=== PATIENT | female | born 2000 | race Caucasian/White ===

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

== ENCOUNTER 2018-01-21 23:45 | Emergency (ER) | payer OTHER ==
[2018-01-22 00:11] VITALS: BP 127/77; PULSE 93; RESP 18; TEMP 98.7
--- NOTE | 2018-01-22 00:30 | ED ---
Lower Extremity Injury HPI - General Chief Complaint: Extremity Injury, Lower Stated Complaint: Work Injury Source: patient Mode of arrival: ambulatory Limitations: no limitations - History of Present Illness Initial Comments: 18-year-old female who denies past medical history presenting today for chief complaint of left ankle pain. 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 Patient denies falling hitting her head or injury to any other extremity. Patient states she difficulty weight-bearing following the incident. Patient states she completed her shift. She was able to ambulate however not applying full pressure on her left ankle. Patient states that she applied ice at that time. Patient states when she went home she ice the ankle and continue to elevate. When pain persisted this evening patient presented for evaluation. Patient denies numbness, loss sensation, coolness or pallor of the extremity. Upon arrival, patient is ambulating, she appears well signs of acute distress. Vital signs within acceptable limits. - Related Data Home Medications Medication Instructions Recorded Confirmed Pnv,Calcium 72/Iron/Folic Acid 1 tab PO DAILY 12/25/17 12/25/17 [ Plus Tablet] Previous Rx's Medication Instructions Recorded Nitrofurantoin Monohyd/M-Cryst 100 mg PO Q12HR #14 cap 12/25/17 [Macrobid] Allergies Allergy/AdvReac Type Severity Reaction Status Date / Time No Known Allergies Allergy Verified 01/22/18 00:11 Review of Systems ROS Statement: Those systems with pertinent positive or pertinent negative responses have been documented in the HPI. ROS Other: All systems not noted in ROS Statement are negative. Constitutional: Denies: fever, chills, night sweats ENT: Denies: ear pain, throat pain Respiratory: Denies: cough, dyspnea, wheezes, hemoptysis Cardiovascular: Denies: chest pain, palpitations Endocrine: Denies: fatigue Gastrointestinal: Denies: abdominal pain, nausea, vomiting, diarrhea, constipation Genitourinary: Denies: urgency, dysuria Musculoskeletal: Reports: joint swelling, arthralgia. Denies: back pain Skin: Denies: rash, lesions Neurological: Denies: headache, weakness, numbness, paresthesias, confusion Past Medical History Past Medical History: GERD/Reflux History of Any Multi-Drug Resistant Organisms: ESBL Date of last positivie culture/infection: 12/25/17 MDRO Source:: URNE ESBL Past Surgical History: No Surgical Hx Reported Past Psychological History: Anxiety, Bipolar, Depression Smoking Status: Light tobacco smoker Past Alcohol Use History: None Reported Past Drug Use History: None Reported General Exam - General Exam Comments Initial Comments: General: The patient is awake and alert, in no distress, and does not appear acutely ill. Eye: +3 pupils are equal, round and reactive to light, extra-ocular movements are intact. No nystagmus. There is normal conjunctiva bilaterally. No signs of icterus. . Cardiovascular: There is a regular rate and rhythm. No murmur, rub or gallop is appreciated. Respiratory: Lungs are clear to auscultation, respirations are non-labored, breath sounds are equal. No wheezes, stridor, rales, or rhonchi. Musculoskeletal: Upon inspection of the ankles, there is mild soft tissue swelling noted along the lateral malleolus of the left ankle. There is no ecchymosis, abrasions or lacerations. Normal inspection of the right ankle. No obvious deformities. Patient is able to fully range at the left ankle however she admits to pain with all motions. Especially with inversion and eversion at the left ankle. No noted laxity of the ankle joint noted. Negative anterior posterior drawer testing. Strength 55 with range of motion of the ankles equally bilaterally. DP pulses +2 equal bilaterally, capillary refill less than 2 seconds. Compartments soft and compressible. There is no pain to compression of the tibia and fibula together. No pain to palpation of the forefoot, no pain or patient at theMTP joints of digits 1 through 3. Neurological: A&O x 3. CN II-XII intact, There are no obvious motor or sensory deficits. Coordination appears grossly intact. Speech is normal. Skin: Skin is warm and dry and no rashes or lesions are noted. Psychiatric: Cooperative, appropriate mood & affect, normal judgment. Limitations: no limitations Course Vital Signs 01/22/18 00:08 Temperature 98.7 F Pulse Rate 93 Respiratory 18 Rate Blood Pressure 127/77 O2 Sat by Pulse 100 Oximetry Medical Decision Making - Medical Decision Making Patient neurovascularly intact. Physical exam as noted above. Imaging obtained , revealing. Patient denied pain management this time. Patient is placed in a posterior mold splint. In addition patient was given crutches for ambulation. Patient is instructed to follow-up with orthopedic surgery if symptoms persist for greater than 1 week. Patient is to follow rice instruction which were discussed at length with patient. Patient verbalized understanding of plan. I recommend follow-up with primary care provider in one to 2 days. At this time I do feel patient is stable for discharge. Patient was giving a work note. Case discussed with Dr. Mccarthy who agreed the impression and plan. Patient agreed with discharge, discharged in stable condition. Return parameters discussed at length prior to patient's discharge Disposition Clinical Impression: Left ankle sprain Disposition: HOME SELF-CARE Condition: Good Instructions: Ankle Sprain (ED) Additional Instructions: Please use medication as discussed. Please follow-up with family doctor in the next 2 days, if symptoms persist for greater than 1 week please follow-up with orthopedic surgery. He sees crutches for ambulation. Please return to emergency room if the symptoms increase or worsen or for any other concerns. Is patient prescribed a controlled substance at d/c from ED?: No Referrals: Lamont Joshi DO [Primary Care Provider] - 1-2 days Cydney Meadows NPC [Nurse Practitioner] - 1-2 days Time of Disposition: 01:16
--- NOTE | 2018-01-22 00:52 | XR ---
EXAMINATION TYPE: XR ankle complete LT DATE OF EXAM: 01/22/2018 COMPARISON: NONE HISTORY: Ankle pain TECHNIQUE: 3 views FINDINGS: There is soft tissue swelling over the lateral malleolus. Ankle mortise is anatomic. I see no fracture. Joint spaces are normal. IMPRESSION: Soft tissue swelling. No fracture seen.
--- NOTE | 2018-01-22 00:53 | XR ---
EXAMINATION TYPE: XR foot complete LT DATE OF EXAM: 01/22/2018 COMPARISON: NONE HISTORY: Foot pain TECHNIQUE: 3 views FINDINGS: I see no fracture nor dislocation. Metatarsals are intact. There are no erosions. Joint spa zara are normal. IMPRESSION: Negative left foot exam.
== END 2018-01-22 01:24 | disposition home or self-care (01) ==
LOC: EC 23:45
DX: S93.402A Sprain of unspecified ligament of left ankle, initial encounter (principal); F17.200 Nicotine dependence, unspecified, uncomplicated; W18.09XA Striking against other object with subsequent fall, initial encounter; Y93.02 Activity, running; Y92.69 Other specified industrial and construction area as the place of occurrence of the external cause; Y99.0 Civilian activity done for income or pay
CPT/HCPCS: 29515; 99283

== ENCOUNTER → 2018-02-09 | Outpatient (CLI) | payer OTHER ==
--- NOTE | 2018-02-09 12:15 | XR ---
EXAMINATION TYPE: XR ankle complete LT DATE OF EXAM: 02/09/2018 COMPARISON: NONE HISTORY: 18-year-old female rolled left ankle 2 weeks ago, pain TECHNIQUE: 3 views FINDINGS: There may be some mild lateral sided soft tissue swelling. Ankle mortise is congruent and talar dome is intact. Preserved distal tibiofibular overlap. No acute fracture, subluxation, or dislocation seen . IMPRESSION: There may be some mild lateral sided soft tissue swelling. No acute osseous abnormality seen.
== END ==
LOC: RADXRMAIN 11:47
PROVIDERS: ATTEND Emergency Medicine
DX: S93.402D Sprain of unspecified ligament of left ankle, subsequent encounter (principal)

== ENCOUNTER 2018-02-23 05:37 | Emergency (ER) | payer OTHER ==
[2018-02-23] MEDS ORDERED: SODIUM CHLORIDE 0.9% 2,000 ML IV STA (07:04)
--- NOTE | 2018-02-23 07:33 | ED ---
Nausea/Vomiting/Diarrhea HPI - General Chief complaint: Nausea/Vomiting/Diarrhea Stated complaint: NVD Time Seen by Provider: 02/23/18 07:03 Source: patient, RN notes reviewed Mode of arrival: ambulatory Limitations: no limitations - History of Present Illness Initial comments: 18-year-old female presents emergency department to complaint of nausea and diarrhea patient states that she's been sick over the last 24 hours. Patient states both of her nieces have similar symptoms. Patient said no vomiting but states that she's had severe diarrhea which is now let up. Patient denies any melena or hematochezia. Patient states she recently found out she is but has no complaints of abdominal pain, vaginal bleeding or vaginal discharge. Patient denies any current dysuria, hematuria. Patient states that she took Zofran at home. Patient denies any fever, chills, flank pain, chest pain or shortness of breath - Related Data Home Medications Medication Instructions Recorded Confirmed Pnv,Calcium 72/Iron/Folic Acid 1 tab PO DAILY 12/25/17 02/23/18 [ Plus Tablet] Previous Rx's Medication Instructions Recorded Nitrofurantoin Monohyd/M-Cryst 100 mg PO Q12HR #14 cap 02/23/18 [Macrobid] Allergies Allergy/AdvReac Type Severity Reaction Status Date / Time No Known Allergies Allergy Verified 02/23/18 07:47 Review of Systems ROS Statement: Those systems with pertinent positive or pertinent negative responses have been documented in the HPI. ROS Other: All systems not noted in ROS Statement are negative. Past Medical History Past Medical History: GERD/Reflux History of Any Multi-Drug Resistant Organisms: ESBL Date of last positivie culture/infection: 12/25/17 MDRO Source:: URNE ESBL Past Surgical History: No Surgical Hx Reported Past Psychological History: Anxiety, Bipolar, Depression Smoking Status: Light tobacco smoker Past Alcohol Use History: None Reported Past Drug Use History: None Reported General Exam Limitations: no limitations General appearance: alert, in no apparent distress Head exam: Present: atraumatic, normocephalic, normal inspection Eye exam: Present: normal appearance, PERRL, EOMI. Absent: scleral icterus, conjunctival injection, periorbital swelling ENT exam: Present: normal oropharynx Neck exam: Present: normal inspection, full ROM. Absent: tenderness, meningismus, lymphadenopathy Respiratory exam: Present: normal lung sounds bilaterally. Absent: respiratory distress, wheezes, rales, rhonchi, stridor Cardiovascular Exam: Present: regular rate, normal rhythm, normal heart sounds. Absent: systolic murmur, diastolic murmur, rubs, gallop, clicks GI/Abdominal exam: Present: soft, normal bowel sounds. Absent: distended, tenderness, guarding, rebound, rigid Back exam: Absent: CVA tenderness (R), CVA tenderness (L) Skin exam: Present: warm, dry, intact, normal color. Absent: rash Course Vital Signs 02/23/18 06:09 Temperature 98.4 F Pulse Rate 62 Respiratory 16 Rate Blood Pressure 97/65 O2 Sat by Pulse 100 Oximetry Medical Decision Making - Medical Decision Making 18-year-old female presented emergency from for nausea diarrhea. Patient was hydrated 2 L of fluids, patient states she does feel better. Patient does have underlying urinary tract infection will be treated for urinary tract infection and . Patient was given 1 g Rocephin emergency department, will be discharged on Macrobid return parameters were discussed. - Lab Data Result diagrams: 02/23/18 07:35 02/23/18 07:35 Lab Results 02/23/18 02/23/18 02/23/18 Range/Units 07:35 07:35 07:35 WBC 11.4 H (4.0-11.0) k/uL RBC 4.76 (3.80-5.40) m/uL Hgb 13.7 (11.4-16.0) gm/dL Hct 41.9 (34.0-46.0) % MCV 88.0 (80.0-100.0) fL MCH 28.7 (25.0-35.0) pg MCHC 32.7 (31.0-37.0) g/dL RDW 12.7 (11.5-15.5) % Plt Count 309 (150-450) k/uL Neutrophils % 84 % Lymphocytes % 10 % Monocytes % 4 % Eosinophils % 1 % Basophils % 0 % Neutrophils # 9.6 H (1.3-7.7) k/uL Lymphocytes # 1.1 (1.0-4.8) k/uL Monocytes # 0.4 (0-1.0) k/uL Eosinophils # 0.1 (0-0.7) k/uL Basophils # 0.0 (0-0.2) k/uL Sodium 142 (137-145) mmol/L Potassium 4.3 (3.5-5.1) mmol/L Chloride 110 H (98-107) mmol/L Carbon Dioxide 23 (22-30) mmol/L Anion Gap 9 mmol/L BUN 8 (7-17) mg/dL Creatinine 0.61 (0.52-1.04) mg/dL Est GFR (CKD-EPI)AfAm >90 (>60 ml/min/1.73 sqM) Est GFR (CKD-EPI)NonAf >90 (>60 ml/min/1.73 sqM) Glucose 96 (74-99) mg/dL Calcium 9.7 (8.4-10.2) mg/dL Total Bilirubin 1.2 (0.2-1.3) mg/dL AST 17 (14-36) U/L ALT 21 (9-52) U/L Alkaline Phosphatase 116 (38-126) U/L Total Protein 7.8 (6.3-8.2) g/dL Albumin 4.2 (3.5-5.0) g/dL Amylase 67 (30-110) U/L Lipase 89 (23-300) U/L HCG, Quant 1304.9 mIU/mL Urine Color Yellow Urine Appearance Cloudy H (Clear) Urine pH 6.0 (5.0-8.0) Ur Specific Stanley 1.032 (1.001-1.035) Urine Protein 1+ H (Negative) Urine Glucose (UA) Negative (Negative) Urine Ketones 1+ H (Negative) Urine Blood Negative (Negative) Urine Nitrite Positive H (Negative) Urine Bilirubin Negative (Negative) Urine Urobilinogen <2.0 (<2.0) mg/dL Ur Leukocyte Esterase Large H (Negative) Urine RBC 4 (0-5) /hpf Urine WBC 8 H (0-5) /hpf Ur Squamous Epith Cells 7 H (0-4) /hpf Urine Bacteria Many H (None) /hpf Urine Mucus Many H (None) /hpf Blood Type Blood Type Recheck 02/23/18 Range/Units 07:39 WBC (4.0-11.0) k/uL RBC (3.80-5.40) m/uL Hgb (11.4-16.0) gm/dL Hct (34.0-46.0) % MCV (80.0-100.0) fL MCH (25.0-35.0) pg MCHC (31.0-37.0) g/dL RDW (11.5-15.5) % Plt Count (150-450) k/uL Neutrophils % % Lymphocytes % % Monocytes % % Eosinophils % % Basophils % % Neutrophils # (1.3-7.7) k/uL Lymphocytes # (1.0-4.8) k/uL Monocytes # (0-1.0) k/uL Eosinophils # (0-0.7) k/uL Basophils # (0-0.2) k/uL Sodium (137-145) mmol/L Potassium (3.5-5.1) mmol/L Chloride (98-107) mmol/L Carbon Dioxide (22-30) mmol/L Anion Gap mmol/L BUN (7-17) mg/dL Creatinine (0.52-1.04) mg/dL Est GFR (CKD-EPI)AfAm (>60 ml/min/1.73 sqM) Est GFR (CKD-EPI)NonAf (>60 ml/min/1.73 sqM) Glucose (74-99) mg/dL Calcium (8.4-10.2) mg/dL Total Bilirubin (0.2-1.3) mg/dL AST (14-36) U/L ALT (9-52) U/L Alkaline Phosphatase (38-126) U/L Total Protein (6.3-8.2) g/dL Albumin (3.5-5.0) g/dL Amylase (30-110) U/L Lipase (23-300) U/L HCG, Quant mIU/mL Urine Color Urine Appearance (Clear) Urine pH (5.0-8.0) Ur Specific Stanley (1.001-1.035) Urine Protein (Negative) Urine Glucose (UA) (Negative) Urine Ketones (Negative) Urine Blood (Negative) Urine Nitrite (Negative) Urine Bilirubin (Negative) Urine Urobilinogen (<2.0) mg/dL Ur Leukocyte Esterase (Negative) Urine RBC (0-5) /hpf Urine WBC (0-5) /hpf Ur Squamous Epith Cells (0-4) /hpf Urine Bacteria (None) /hpf Urine Mucus (None) /hpf Blood Type A Positive Blood Type Recheck No Disposition Clinical Impression: Nausea, Diarrhea, Urinary tract infection Disposition: HOME SELF-CARE Condition: Stable Instructions: Acute Diarrhea (ED), Urinary Tract Infection in (ED) Additional Instructions: Please return to the Emergency Department if symptoms worsen or any other concerns. Prescriptions: Nitrofurantoin Monohyd/M-Cryst [Macrobid] 100 mg PO Q12HR #14 cap Is patient prescribed a controlled substance at d/c from ED?: No Referrals: Lamont Joshi DO [Primary Care Provider] - 1-2 days Time of Disposition: 09:01
[2018-02-23 08:20] LABS: Basophils % (A) 0 %; Eosinophils # (A) 0.1 k/uL (0-0.7); Eosinophils % (A) 1 %; HCT 41.9 % (34.0-46.0); HGB 13.7 gm/dL (11.4-16.0); Lymphocytes # (A) 1.1 k/uL (1.0-4.8); Lymphocytes % (A) 10 %; MCH 28.7 pg (25.0-35.0); MCHC 32.7 g/dL (31.0-37.0); Mean Platelet Volume 6.8; Monocytes # (A) 0.4 k/uL (0-1.0); Monocytes % (A) 4 %; Neutrophils # (A) 9.6 k/uL (1.3-7.7); Neutrophils % (A) 84 %; Platelet Count 309 k/uL (150-450); RBC 4.76 m/uL (3.80-5.40); RDW 12.7 % (11.5-15.5); WBC 11.4 k/uL (4.0-11.0)
[2018-02-23 08:22] LABS: Appearance,Urine Cloudy (Clear); Bacteria,Urine Many /hpf; Bilirubin,Urine Negative (Negative); Blood,Urine Negative (Negative); Color,Urine Yellow; Glucose,Urine (UA) Negative (Negative); Ketones,Urine 1+ (Negative); Leukocyte Esterase,Urine Large (Negative); Mucus,Urine Many /hpf; Nitrite,Urine Positive (Negative); Protein,Urine 1+ (Negative); RBC,Urine 4 /hpf (0-5); Specific Gravity,Urine 1.032 (1.001-1.035); Squamous Epithelial Cell,Urine 7 /hpf (0-4); Urobilinogen,Urine <2.0 mg/dL (<2.0); WBC,Urine 8 /hpf (0-5)
[2018-02-23 08:36] LABS: ALT 21 U/L (9-52); AST 17 U/L (14-36); Albumin 4.2 g/dL (3.5-5.0); Alkaline Phosphatase 116 U/L (38-126); Amylase 67 U/L (30-110); Anion Gap 9 mmol/L; Blood Urea Nitrogen 8 mg/dL (7-17); Calcium 9.7 mg/dL (8.4-10.2); Carbon Dioxide 23 mmol/L (22-30); Chloride 110 mmol/L (98-107); Glucose 96 mg/dL (74-99); Lipase 89 U/L (23-300); Potassium 4.3 mmol/L (3.5-5.1); Sodium 142 mmol/L (137-145); Total Bilirubin 1.2 mg/dL (0.2-1.3); Total Protein 7.8 g/dL (6.3-8.2)
[2018-02-23 08:51] LABS: HCG,Quantitative Serum 1304.9 mIU/mL
[2018-02-23 09:16] VITALS: BP 126/64; PULSE 82; RESP 17; TEMP 96.9
== END 2018-02-23 09:16 | disposition home or self-care (01) ==
LOC: EC 05:37
DX: O23.40 Unspecified infection of urinary tract in pregnancy, unspecified trimester (principal); O99.89 Other specified diseases and conditions complicating pregnancy, childbirth and the puerperium; R19.7 Diarrhea, unspecified; R11.0 Nausea; O99.330 Smoking (tobacco) complicating pregnancy, unspecified trimester; F17.200 Nicotine dependence, unspecified, uncomplicated; Z3A.00 Weeks of gestation of pregnancy not specified
CPT/HCPCS: 36415; 86900; 86901; 80053; 82150; 83690; 85025; 81001; 84702; 87086; 99284; 96365; 96361 ×2; J0696; 87077; 87186

== ENCOUNTER 2018-05-03 23:17 | Emergency (ER) | payer OTHER ==
--- NOTE | 2018-05-03 23:57 | ED ---
General Adult HPI - General Chief complaint: Extremity Problem,Nontraumatic Stated complaint: Sharp Pain R Shoulder Blade Time Seen by Provider: 05/03/18 23:35 Source: patient Mode of arrival: ambulatory Limitations: no limitations - History of Present Illness Initial comments: Collette is a previously healthy 18-year-old female who is currently 14 weeks pr egnant. She presents the emergency department today for evaluation of stabbing like pain in her right scapular area. Patient reports that she's had a nonproductive cough and nasal congestion and malaise for couple of days, her significant other currently diagnosed with mono and bronchitis. Patient is concerned she may be developing pneumonia so she came to the ER for evaluation. Patient states that she's been taking Tylenol for the discomfort with no improvement in her symptoms. Patient denies any fevers, chills, nausea, vomiting, abdominal pain she denies any shortness of breath or difficulty breathing she has no history of DVT or PE. She's had no lower extremity swelling no long distance travel no limb immobilization. - Related Data Home Medications Medication Instructions Recorded Confirmed Pnv,Calcium 72/Iron/Folic Acid 1 tab PO DAILY 12/25/17 05/03/18 [ Plus Tablet] Sulfamethoxazole/Trimethoprim 1 each PO BID 05/03/18 05/03/18 [Bactrim DS 800-160 mg] Allergies Allergy/AdvReac Type Severity Reaction Status Date / Time No Known Allergies Allergy Verified 05/03/18 23:28 Review of Systems ROS Statement: Those systems with pertinent positive or pertinent negative responses have been documented in the HPI. ROS Other: All systems not noted in ROS Statement are negative. Past Medical History Past Medical History: GERD/Reflux History of Any Multi-Drug Resistant Organisms: ESBL Date of last positivie culture/infection: 12/25/17 MDRO Source:: URNE ESBL Past Surgical History: No Surgical Hx Reported Past Psychological History: Anxiety, Bipolar, Depression Smoking Status: Former smoker Past Alcohol Use History: None Reported Past Drug Use History: None Reported General Exam - General Exam Comments Initial Comments: Physical Exam GENERAL: Patient is well-developed and well-nourished. Patient is nontoxic and well- hydrated and is in no distress. HENT: Normocephalic, Atraumatic. EYES: PERRL, EOMI PULMONARY: Unlabored respirations. No audible rales rhonchi or wheezing was noted. CARDIOVASCULAR: There is a regular rate and rhythm without any murmurs gallops or rubs. ABDOMEN: Soft and nontender with normal bowel sounds. Gravid abdomen Bedside ultrasound reveals an active fetus with a heart rate in the 150s SKIN: Skin is clear with no lesions or rashes and otherwise unremarkable. : Deferred NEUROLOGIC: Patient is alert and oriented x3. Moving all extremities spontaneously MUSCULOSKELETAL: Normal extremities with adequate strength and full range of motion. No lower extremity swelling or edema. No calf tenderness. PSYCHIATRIC: Normal psychiatric evaluation. Limitations: no limitations Limitations: no limitations Course Vital Signs 05/03/18 23:24 Temperature 98.6 F Pulse Rate 85 Respiratory 18 Rate Blood Pressure 107/68 O2 Sat by Pulse 99 Oximetry Medical Decision Making - Medical Decision Making She was seen and evaluated history is obtained from patient Physical exam was unremarkable At that ultrasound revealed a active fetus with a heart rate in the 150s Chest x-ray was ordered to evaluate for any evidence of pneumothorax or pneumonia Chest x-ray no acute findings At this time I suspect the patient is likely suffering from pleurisy this is likely related to a viral URI. Unfortunately due to the patient's she's not candidate for NSAIDs and will have to continue treatment with Tylenol The patient's emergency room visit she remained hemodynamically stable, heart rate in the 80s, oxygen saturation greater than 99% on room air. She was never tachycardic or hypoxic. I have no concern for pulmonary embolism based on her history and physical exam. All questions pertaining care were answered return parameters were discussed patient was discharged home in stable condition Disposition Clinical Impression: Pleurisy Disposition: HOME SELF-CARE Condition: Good Instructions (If sedation given, give patient instructions): Pleurisy (DC) Is patient prescribed a controlled substance at d/c from ED?: No Referrals: Lamont Joshi DO [Primary Care Provider] - 1-2 days
--- NOTE | 2018-05-04 00:26 | XR ---
EXAM: XR Chest, 2 Views CLINICAL HISTORY: Pleuritic pain TECHNIQUE: Frontal and lateral views of the chest. COMPARISON: No relevant prior studies available. FINDINGS: Lungs: Unremarkable. No consolidation. Pleural space: Unremarkable. No pneumothorax. Heart: Unremarkable. No cardiomegaly. Mediastinum: Unremarkable. Bones/joints: No acute osseous abnormality. IMPRESSION: No acute cardiopulmonary process.
[2018-05-04 01:12] VITALS: BP 104/68; PULSE 81; RESP 16; TEMP 98.7
== END 2018-05-04 01:12 | disposition home or self-care (01) ==
LOC: EC 23:17
DX: O99.89 Other specified diseases and conditions complicating pregnancy, childbirth and the puerperium (principal); R09.1 Pleurisy; R09.81 Nasal congestion; R05 Cough; R53.81 Other malaise; Z3A.14 14 weeks gestation of pregnancy; Z87.891 Personal history of nicotine dependence
CPT/HCPCS: 71046; 99283

== ENCOUNTER 2018-05-12 19:06 | Emergency (ER) | payer OTHER ==
[2018-05-12 19:36] VITALS: RESP 18
[2018-05-12] MEDS ORDERED: ACETAMINOPHEN ORAL SUSP 160 MG/5 ML CUP PO ONE (19:59)
--- NOTE | 2018-05-12 20:39 | ED ---
URI HPI - General Chief Complaint: Upper Respiratory Infection Stated Complaint: flu symptoms Time Seen by Provider: 05/12/18 19:16 Source: patient Mode of arrival: ambulatory Limitations: no limitations - History of Present Illness Initial Comments: 18-year-old female with no PMH presenting today for chief complaint of cough body aches and fever. Patient states that her boyfriend was diagnosed with influenza a last night. She states she did not have symptoms at that time. Patient states she began experience symptoms this morning cough congestion and body aches. Patient states she has also had a fever. Patient states she has 16 weeks . She states she has had cramping throughout her , she states this felt slightly more sharp than usual. Patient presented for evaluation and treatment of influenza. Patient states she has no vaginal bleeding, vaginal discharge or severe abdominal pain. Patient denies any chest pain, dyspnea, dyspnea on exertion shows a lower external swelling headache or dizziness. Remaining review of systems negative. Patient states she took Tylenol 6 hours prior. Patient febrile upon arrival to elevated heart rate. Remaining vital signs within acceptable limits. - Related Data Home Medications Medication Instructions Recorded Confirmed Pnv,Calcium 72/Iron/Folic Acid 1 tab PO DAILY 12/25/17 05/03/18 [ Plus Tablet] Sulfamethoxazole/Trimethoprim 1 each PO BID 05/03/18 05/03/18 [Bactrim DS 800-160 mg] Previous Rx's Medication Instructions Recorded Oseltamivir [Tamiflu] 75 mg PO Q12HR 5 Days #10 cap 05/12/18 Allergies Allergy/AdvReac Type Severity Reaction Status Date / Time No Known Allergies Allergy Verified 05/03/18 23:28 Review of Systems ROS Statement: Those systems with pertinent positive or pertinent negative responses have been documented in the HPI. ROS Other: All systems not noted in ROS Statement are negative. Past Medical History Past Medical History: GERD/Reflux History of Any Multi-Drug Resistant Organisms: ESBL Date of last positivie culture/infection: 12/25/17 MDRO Source:: URNE ESBL Past Surgical History: No Surgical Hx Reported Past Psychological History: Anxiety, Bipolar, Depression Smoking Status: Former smoker Past Alcohol Use History: None Reported Past Drug Use History: None Reported General Exam - General Exam Comments Initial Comments: General: The patient is awake and alert, in no distress, and does not appear acutely ill. Eye: +3 mm pupils are equal, round and reactive to light, extra-ocular movements are intact. No nystagmus. There is normal conjunctiva bilaterally. No signs of icterus. No photophobia Ears, nose, mouth and throat: There are moist mucous membranes and no oral lesions. Oropharynx was not erythematous there is no tonsillar enlargement exudates or lesions. Uvula midline. Tympanic membranes are not erythematous or is no effusions bulging or retraction. No tenderness to palpation of the mastoid. No anterior cervical lymphadenopathy. Rhinorrhea, clear and bilateral nares. No tripoding, no drooling. Neck: The neck is supple, there is no tenderness or JVD. No nuchal rigidity negative Brudzinski and Kernig Cardiovascular: There is a regular rate and rhythm. No murmur, rub or gallop is appreciated. Respiratory: Lungs are clear to auscultation, respirations are non-labored, br eath sounds are equal. No wheezes, stridor, rales, or rhonchi. No retractions or abdominal breathing. Gastrointestinal: Soft, non-distended, non-tender abdomen without masses or organomegaly noted. There is no rebound or guarding present. Bowel sounds are unremarkable. Musculoskeletal: Normal ROM, no tenderness. Strength 5/5. Sensation intact. Radial pulses equal bilaterally 2+. Neurological: A&O x 3. CN II-XII intact, There are no obvious motor or sensory deficits. Coordination appears grossly intact. Speech appears normal, no muffling. Skin: Skin is warm and dry and no rashes or lesions are noted. No extremity edema Psychiatric: Cooperative Limitations: no limitations Course Vital Signs 05/12/18 05/12/18 19:31 20:52 Temperature 99.2 F 99 F Pulse Rate 110 H 101 H Respiratory 18 18 Rate Blood Pressure 108/75 105/75 O2 Sat by Pulse 99 98 Oximetry - Reevaluation(s) Reevaluation #1: Ultrasound performed good cardiac motion, baby moving extremities Medical Decision Making - Medical Decision Making 18-year-old female presenting for exposure to influenza with cough congestion and fever and body aches. Lungs clear to auscultation. Patient complains A+. Patient given Tylenol. Ultrasound performed bedside revealing good cardiac motion as well as movement. Patient denies any vaginal bleeding. Benign abdominal exam. No apparent complicating process at this time. At this time I feel patient is stable for discharge with treatment Tamiflu and symptomatic treatment. I discussed case with attending provider by Dr. Mccarthy was agreeable disposition and plan. - Lab Data Lab Results 05/12/18 Range/Units 19:40 Influenza Type A RNA Detected H (Not Detectd) Influenza Type B (PCR) Not Detected (Not Detectd) Disposition Clinical Impression: Influenza A Disposition: HOME SELF-CARE Condition: Good Instructions (If sedation given, give patient instructions): Influenza (ED) Additional Instructions: Please use medication as discussed. Please follow-up with family doctor in the next 2 days. Please return to emergency room if the symptoms increase or worsen or for any other concerns. Prescriptions: Oseltamivir [Tamiflu] 75 mg PO Q12HR 5 Days #10 cap Is patient prescribed a controlled substance at d/c from ED?: No Referrals: Lamont Joshi DO [Primary Care Provider] - 1-2 days Time of Disposition: 20:38
[2018-05-12 20:53] VITALS: BP 105/75; PULSE 101; TEMP 99
== END 2018-05-12 20:52 | disposition home or self-care (01) ==
LOC: EC 19:06
DX: O99.512 Diseases of the respiratory system complicating pregnancy, second trimester (principal); J10.1 Influenza due to other identified influenza virus with other respiratory manifestations; Z87.891 Personal history of nicotine dependence; Z3A.16 16 weeks gestation of pregnancy
CPT/HCPCS: 87502; 99283

== ENCOUNTER 2018-05-28 11:10 | Emergency (ER) | payer OTHER ==
[2018-05-28] MEDS ORDERED: DICYCLOMINE 10 MG/ML 2 ML AMP IM STA (11:56)
[2018-05-28] MEDS ORDERED: SODIUM CHLORIDE 0.9% 2,000 ML IV STA (11:56)
[2018-05-28] MEDS ORDERED: FAMOTIDINE 20 MG/2 ML VIAL IV STA (11:56)
[2018-05-28] MEDS ORDERED: ONDANSETRON 4 MG/2 ML VIAL IVP STA ×2 (11:56→14:00)
--- NOTE | 2018-05-28 11:59 | ED ---
General Adult HPI - General Chief complaint: Nausea/Vomiting/Diarrhea Stated complaint: Diarrhea Time Seen by Provider: 05/28/18 11:38 Source: patient, RN notes reviewed Mode of arrival: ambulatory Limitations: no limitations - History of Present Illness Initial comments: Patient is a pleasant 18-year-old female presenting to the emergency department with concerns for diarrhea. Onset of symptoms was 3 days ago. Patient has had nausea and one episode of vomiting. Patient states normally she is able to control emesis and not vomit. Patient has had numerous episodes of diarrhea. Patient does have diffuse cramping. Patient has not been able tolerate much oral intake in the past couple of days. Patient is approximately 18 weeks gravid. Patient has had previous ultrasound that was reported to her as normal. No known fevers. - Related Data Home Medications Medication Instructions Recorded Confirmed Pnv,Calcium 72/Iron/Folic Acid 1 tab PO DAILY 12/25/17 05/03/18 [ Plus Tablet] Sulfamethoxazole/Trimethoprim 1 each PO BID 05/03/18 05/03/18 [Bactrim DS 800-160 mg] Previous Rx's Medication Instructions Recorded Oseltamivir [Tamiflu] 75 mg PO Q12HR 5 Days #10 cap 05/12/18 Ondansetron Odt [Zofran Odt] 4 mg PO Q8HR PRN #10 tab 05/28/18 Allergies Allergy/AdvReac Type Severity Reaction Status Date / Time No Known Allergies Allergy Verified 05/28/18 11:28 Review of Systems ROS Statement: Those systems with pertinent positive or pertinent negative responses have been documented in the HPI. ROS Other: All systems not noted in ROS Statement are negative. Constitutional: Denies: fever, chills Eyes: Denies: eye pain ENT: Denies: ear pain Respiratory: Denies: cough Cardiovascular: Denies: chest pain Endocrine: Reports: fatigue Gastrointestinal: Reports: abdominal pain, nausea, vomiting, diarrhea Genitourinary: Denies: dysuria, hematuria Musculoskeletal: Denies: back pain Skin: Denies: rash Neurological: Denies: weakness Past Medical History Past Medical History: GERD/Reflux History of Any Multi-Drug Resistant Organisms: ESBL Date of last positivie culture/infection: 12/25/17 MDRO Source:: URNE ESBL Past Surgical History: No Surgical Hx Reported Past Psychological History: Anxiety, Bipolar, Depression Smoking Status: Former smoker Past Alcohol Use History: None Reported Past Drug Use History: None Reported General Exam Limitations: no limitations General appearance: alert, in no apparent distress Head exam: Present: atraumatic Eye exam: Present: normal appearance, PERRL ENT exam: Present: normal oropharynx Neck exam: Present: normal inspection Respiratory exam: Present: normal lung sounds bilaterally Cardiovascular Exam: Present: regular rate, normal rhythm Expanded Peripheral pulses: 2+: Dorsalis Pedis (R), Dorsalis Pedis (L) GI/Abdominal exam: Present: soft, tenderness (Mild diffuse tenderness), normal bowel sounds. Absent: distended, pulsatile mass Extremities exam: Present: normal inspection. Absent: pedal edema, calf tenderness Neurological exam: Present: alert Psychiatric exam: Present: normal affect, normal mood Skin exam: Present: normal color Course Vital Signs 05/28/18 11:28 Temperature 98.9 F Pulse Rate 104 H Respiratory 18 Rate Blood Pressure 109/72 O2 Sat by Pulse 99 Oximetry Medical Decision Making - Medical Decision Making Patient reevaluated and feeling much better. Patient is receptive to Zofran at this time. Patient is updated on results and need for follow-up. Abdomen is soft and nontender. Patient does see Dr. Wolff with [facility] and will call tomorrow for follow-up. - Lab Data Result diagrams: 05/28/18 12:18 05/28/18 12:18 Lab Results 05/28/18 05/28/18 05/28/18 Range/Units 12:18 12:18 13:40 WBC 10.1 (4.0-11.0) k/uL RBC 4.17 (3.80-5.40) m/uL Hgb 12.5 (11.4-16.0) gm/dL Hct 36.7 (34.0-46.0) % MCV 87.9 (80.0-100.0) fL MCH 29.8 (25.0-35.0) pg MCHC 34.0 (31.0-37.0) g/dL RDW 14.9 (11.5-15.5) % Plt Count 253 (150-450) k/uL Neutrophils % 91 % Lymphocytes % 5 % Monocytes % 3 % Eosinophils % 0 % Basophils % 0 % Neutrophils # 9.2 H (1.3-7.7) k/uL Lymphocytes # 0.5 L (1.0-4.8) k/uL Monocytes # 0.3 (0-1.0) k/uL Eosinophils # 0.0 (0-0.7) k/uL Basophils # 0.0 (0-0.2) k/uL Sodium 135 L (137-145) mmol/L Potassium 3.8 (3.5-5.1) mmol/L Chloride 108 H (98-107) mmol/L Carbon Dioxide 21 L (22-30) mmol/L Anion Gap 6 mmol/L BUN 5 L (7-17) mg/dL Creatinine 0.33 L (0.52-1.04) mg/dL Est GFR (CKD-EPI)AfAm >90 (>60 ml/min/1.73 sqM) Est GFR (CKD-EPI)NonAf >90 (>60 ml/min/1.73 sqM) Glucose 87 (74-99) mg/dL Calcium 9.1 (8.4-10.2) mg/dL Total Bilirubin 0.9 (0.2-1.3) mg/dL AST 22 (14-36) U/L ALT 24 (9-52) U/L Alkaline Phosphatase 80 (38-126) U/L Total Protein 6.8 (6.3-8.2) g/dL Albumin 3.7 (3.5-5.0) g/dL Amylase 67 (30-110) U/L Lipase 62 (23-300) U/L Urine Color Yellow Urine Appearance Clear (Clear) Urine pH 6.0 (5.0-8.0) Ur Specific [place] 1.023 (1.001-1.035) Urine Protein Trace H (Negative) Urine Glucose (UA) Negative (Negative) Urine Blood Negative (Negative) Urine Nitrite Negative (Negative) Urine Bilirubin Negative (Negative) Urine Urobilinogen <2.0 (<2.0) mg/dL Ur Leukocyte Esterase Negative (Negative) Disposition Clinical Impression: Diarrhea Disposition: HOME SELF-CARE Condition: Stable Instructions (If sedation given, give patient instructions): Acute Diarrhea (ED) Additional Instructions: Please follow-up with Dr. Reid the next day or 2 for recheck, call tomorrow. Please also follow-up with primary care physician. Return for increased pain, vomiting, not tolerating oral intake, worsening symptoms or other concerns. Prescriptions: Ondansetron Odt [Zofran Odt] 4 mg PO Q8HR PRN #10 tab PRN Reason: Nausea Is patient prescribed a controlled substance at d/c from ED?: No Referrals: Lamont Joshi DO [Primary Care Provider] - 1-2 days Susi Reid DO [Doctor of Osteopathic Medicine] - 1-2 days Time of Disposition: 13:59
[2018-05-28 12:36] LABS: Basophils % (A) 0 %; Eosinophils % (A) 0 %; HCT 36.7 % (34.0-46.0); HGB 12.5 gm/dL (11.4-16.0); Lymphocytes # (A) 0.5 k/uL (1.0-4.8); Lymphocytes % (A) 5 %; MCH 29.8 pg (25.0-35.0); MCV 87.9 fL (80.0-100.0); Mean Platelet Volume 7.6; Monocytes # (A) 0.3 k/uL (0-1.0); Monocytes % (A) 3 %; Neutrophils # (A) 9.2 k/uL (1.3-7.7); Neutrophils % (A) 91 %; Platelet Count 253 k/uL (150-450); RBC 4.17 m/uL (3.80-5.40); RDW 14.9 % (11.5-15.5); WBC 10.1 k/uL (4.0-11.0)
[2018-05-28 12:46] LABS: ALT 24 U/L (9-52); AST 22 U/L (14-36); Albumin 3.7 g/dL (3.5-5.0); Alkaline Phosphatase 80 U/L (38-126); Amylase 67 U/L (30-110); Anion Gap 6 mmol/L; Blood Urea Nitrogen 5 mg/dL (7-17); Calcium 9.1 mg/dL (8.4-10.2); Carbon Dioxide 21 mmol/L (22-30); Chloride 108 mmol/L (98-107); Glucose 87 mg/dL (74-99); Lipase 62 U/L (23-300); Potassium 3.8 mmol/L (3.5-5.1); Sodium 135 mmol/L (137-145); Total Bilirubin 0.9 mg/dL (0.2-1.3); Total Protein 6.8 g/dL (6.3-8.2)
[2018-05-28 13:50] LABS: Appearance,Urine Clear (Clear); Bilirubin,Urine Negative (Negative); Blood,Urine Negative (Negative); Color,Urine Yellow; Glucose,Urine (UA) Negative (Negative); Ketones,Urine 3+ (Negative); Leukocyte Esterase,Urine Negative (Negative); Nitrite,Urine Negative (Negative); Protein,Urine Trace (Negative); Specific Gravity,Urine 1.023 (1.001-1.035); Urobilinogen,Urine <2.0 mg/dL (<2.0)
[2018-05-28 14:14] VITALS: BP 110/70; PULSE 78; RESP 16; TEMP 97.8
== END 2018-05-28 14:13 | disposition home or self-care (01) ==
LOC: EC 11:10
DX: O99.89 Other specified diseases and conditions complicating pregnancy, childbirth and the puerperium (principal); R19.7 Diarrhea, unspecified; O21.9 Vomiting of pregnancy, unspecified; R25.2 Cramp and spasm; Z87.891 Personal history of nicotine dependence; Z87.19 Personal history of other diseases of the digestive system; Z3A.18 18 weeks gestation of pregnancy
CPT/HCPCS: 36415; 80053; 82150; 83690; 85025; 81003; 99284; 96374; 96375; 96361 ×2; 96372; J0500; J2405

== ENCOUNTER → 2018-06-23 | Outpatient (CLI) | payer OTHER ==
[2018-06-23 12:52] VITALS: BP 118/63; PULSE 88; RESP 16; TEMP 98.9
--- NOTE | 2018-07-24 12:30 | P.MSEPDOC ---
Presenting Problems - Arrival Data Date of Arrival on Unit: 06/23/18 Time of Arrival on Unit: 12:30 Mode of Transport: Ambulatory - Complaint OB-Reason for Admission/Chief Complaint: Other Comment: pain only with working Medical History - Information : 2 Para: 0 Term: 0 : 0 Abortions: Spontaneous or Elective: 1 Number of Living Children: 0 - Gestational Age Gestational Age by LENA (wks/days): 21 Weeks and 4 Days - History Complications: Smoker Review of Systems - Review of Systems Constitutional: No problems Breast: No problems ENT: No problems Cardiovascular: No problems Respiratory: No problems Gastrointestinal: No problems Genitourinary: No problems Musculoskeletal: No problems Neurological: No problems Skin: No problems Vital Signs - Temperature Temperature: 98.9 F Temperature Source: Oral - Pulse Supine Pulse Rate: 88 Pulse Assessment Method: Automatic Cuff - Respirations Respiratory Rate: 16 Oxygen Delivery Method: Room Air - Blood Pressure Supine Blood Pressure: 118/63 Blood Pressure Mean: 81 Blood Pressure Source: Automatic Cuff Medical Screen Scoring (Pre) - Cervical Exam Dilation: 0 cm = 0 - Uterine Contractions Frequency: N/A Duration: N/A Intensity: N/A - Maternal Vital Signs Maternal Temperature: N/A Maternal Respirations: N/A - Maternal Trauma Maternal Trauma: N/A - Assessment - Baby A Baseline FHR: 160 - Total Score - Baby A Total Score - Baby A: 0 - Level of Risk - Baby A Level of Risk - Baby A: Low (0-5) - Pain Assessment Pain Scale Used: Numeric (1 - 10) Pain Intensity: 0 Pain Management Goal: 0 Physician Notification (Pre) - Physician Notified Physician Notified Date: 06/23/18 Physician Notified Time: 12:51 Physician/Practitioner Notifed:: dr stover Spoke With: dr stover New Order Received: Yes - Notification Comment Comment: pt to be discharged home Disposition - Disposition OB Disposition: Physician follow up in office, Discharge to home Discharge Date: 06/23/18 Discharge Time: 12:52 I agree with the RN Medical Screening Exam: Yes Risk & Benefit of care provided described in d/c instruction: Yes Diagnosis: UNSPECIFIED ABDOMINAL PAIN
== END | disposition home or self-care (01) ==
LOC: FBPOP 12:26
PROVIDERS: ATTEND Obstetrics & Gynecology Obstetrics
DX: O99.89 Other specified diseases and conditions complicating pregnancy, childbirth and the puerperium (principal); R10.9 Unspecified abdominal pain; O99.332 Smoking (tobacco) complicating pregnancy, second trimester; F17.200 Nicotine dependence, unspecified, uncomplicated; Z3A.21 21 weeks gestation of pregnancy
CPT/HCPCS: 99213

== ENCOUNTER 2018-09-28 18:20 | Outpatient (CLI) | payer OTHER ==
[2018-09-28 19:31] VITALS: BP 128/75; PULSE 91; RESP 17; TEMP 98.1
--- NOTE | 2018-10-11 15:51 | P.MSEPDOC ---
Presenting Problems - Arrival Data Date of Arrival on Unit: 09/28/18 Time of Arrival on Unit: 18:20 Mode of Transport: Ambulatory - Complaint OB-Reason for Admission/Chief Complaint: Pain Comment: headache on and off the past 2 days relieved by tylenol. Medical History - Information : 2 Para: 1 Term: 1 : 0 Abortions: Spontaneous or Elective: 0 Number of Living Children: 1 - Gestational Age Gestational Age by LENA (wks/days): 35 Weeks and 3 Days Review of Systems - Review of Systems Constitutional: No problems Breast: No problems ENT: No problems Respiratory: No problems Gastrointestinal: No problems Genitourinary: No problems Musculoskeletal: No problems Neurological: No problems Skin: No problems Comment: headache that comes and goes Vital Signs - Temperature Temperature: 98.1 F Temperature Source: Temporal Artery Scan - Pulse Right Pulse Oximetery Pulse Rate: 91 Pulse Assessment Method: Pulse Oximetry - Respirations Respiratory Rate: 17 Oxygen Delivery Method: Room Air O2 Sat by Pulse Oximetry: 97 - Blood Pressure Right Arm Blood Pressure: 128/75 Blood Pressure Mean: 92 Blood Pressure Source: Automatic Cuff Medical Screen Scoring (Pre) - Cervical Exam Dilation: Exam Deferred Effacement: Exam Deferred Membranes: Intact - Uterine Contractions Frequency: N/A Duration: N/A Intensity: N/A - Maternal Vital Signs Maternal Temperature: N/A Maternal Blood Pressure: N/A Signs of Preeclampsia: N/A Maternal Respirations: N/A - Maternal Trauma Maternal Trauma: N/A - Assessment - Baby A Baseline FHR: 140 Heart Rate - NICHD Category: Category I (Normal) = 0 NST: Reactive Position: N/A Station: N/A - Total Score - Baby A Total Score - Baby A: 0 - Total Score - Baby B Total Score - Baby B: 0 - Total Score - Baby C Total Score - Baby C: 0 - Level of Risk - Baby A Level of Risk - Baby A: Low (0-5) - Level of Risk - Baby B Level of Risk - Baby B: Low (0-5) - Level of Risk - Baby C Level of Risk - Baby C: Low (0-5) Physician Notification (Pre) - Physician Notified Physician Notified Date: 09/28/18 Physician Notified Time: 19:20 Physician/Practitioner Notifed:: Sidra Spoke With: Sidra - spoke with by Cedric Robbins New Order Received: Yes - Notification Comment Comment: pt here for headache that comes and goes and looked her symptoms up online and was concerned she may have preeclampsia, Vitals normal, no other s ymptoms related to preeclampsia. d/C order received. Disposition - Disposition OB Disposition: Physician follow up in office, Discharge to home Discharge Date: 09/28/18 Discharge Time: 19:30 I agree with the RN Medical Screening Exam: Yes Risk & Benefit of care provided described in d/c instruction: Yes Diagnosis: HEADACHE
== END 2018-09-28 19:30 | disposition home or self-care (01) ==
LOC: FBPOP 18:20
PROVIDERS: ATTEND Obstetrics & Gynecology
DX: O99.89 Other specified diseases and conditions complicating pregnancy, childbirth and the puerperium (principal); R51 Headache; Z3A.35 35 weeks gestation of pregnancy
CPT/HCPCS: 59025; G0463; 99213

== ENCOUNTER 2018-10-05 22:40 | Outpatient (CLI) | payer OTHER ==
[2018-10-05] MEDS ORDERED: diphenhydrAMINE 50 MG CAP PO STA (23:17)
[2018-10-06 00:49] VITALS: BP 134/69; PULSE 92; RESP 18; TEMP 97.4
--- NOTE | 2018-10-23 10:25 | P.MSEPDOC ---
Presenting Problems - Arrival Data Date of Arrival on Unit: 10/05/18 Time of Arrival on Unit: 22:40 Mode of Transport: Ambulatory - Complaint Comment: pt presents to triage for rash and itching on lower abd and shins Medical History - Information : 2 Para: 0 Term: 0 : 0 Abortions: Spontaneous or Elective: 0 Number of Living Children: 0 - Gestational Age Gestational Age by LENA (wks/days): 36 Weeks and 4 Days Review of Systems - Review of Systems Constitutional: No problems Breast: No problems ENT: No problems Cardiovascular: No problems Respiratory: No problems Gastrointestinal: No problems Genitourinary: No problems Musculoskeletal: No problems Neurological: No problems Skin: No problems Vital Signs - Temperature Temperature: 97.4 F Temperature Source: Oral - Pulse Right Brachial Pulse Rate: 92 Pulse Assessment Method: Automatic Cuff - Respirations Respiratory Rate: 18 Oxygen Delivery Method: Room Air - Blood Pressure Right Arm Blood Pressure: 134/69 Blood Pressure Mean: 90 Blood Pressure Source: Automatic Cuff Medical Screen Scoring (Pre) - Cervical Exam Dilation: Exam Deferred Effacement: Exam Deferred Membranes: Intact - Uterine Contractions Frequency: N/A, > 5 minutes apart = 1 Duration: N/A Intensity: N/A - Maternal Vital Signs Maternal Temperature: N/A Maternal Blood Pressure: N/A Signs of Preeclampsia: N/A Maternal Respirations: N/A - Maternal Trauma Maternal Trauma: N/A - Assessment - Baby A Baseline FHR: 135 Heart Rate - NICHD Category: Category I (Normal) = 0 NST: Reactive Position: N/A Station: N/A - Total Score - Baby A Total Score - Baby A: 1 - Total Score - Baby B Total Score - Baby B: 1 - Total Score - Baby C Total Score - Baby C: 1 - Level of Risk - Baby A Level of Risk - Baby A: Low (0-5) - Level of Risk - Baby B Level of Risk - Baby B: Low (0-5) - Level of Risk - Baby C Level of Risk - Baby C: Low (0-5) Physician Notification (Pre) - Physician Notified Physician Notified Date: 10/05/18 Physician Notified Time: 23:16 Physician/Practitioner Notifed:: Dr. Perkins Spoke With: Dr. Perkins New Order Received: Yes - Notification Comment Comment: given 50 mg po benadryl, prednisone pack escribed into [facility] that pt will pickle maker tomorrow morning, will follow up with Dr. Reid on at scheduled appt Disposition - Disposition OB Disposition: Triage, Discharge to home, Written follow up instructions reviewed Discharge Date: 10/06/18 Discharge Time: 23:40 I agree with the RN Medical Screening Exam: Yes Risk & Benefit of care provided described in d/c instruction: Yes Diagnosis: RASH AND OTHER NONSPECIFIC SKIN ERUPTION
== END 2018-10-05 23:40 | disposition home or self-care (01) ==
LOC: FBPOP 22:40
PROVIDERS: ATTEND Obstetrics & Gynecology
DX: O26.893 Other specified pregnancy related conditions, third trimester (principal); R21 Rash and other nonspecific skin eruption; Z3A.36 36 weeks gestation of pregnancy
CPT/HCPCS: 59025; G0463; 99213

== ENCOUNTER 2018-10-24 07:19 | Inpatient (IN) | payer OTHER ==
[2018-10-24] MEDS ORDERED: CARBOPROST TROMETHAMINE 250 MCG/ML 1 ML AMP IM PRN (08:21)
[2018-10-24] MEDS ORDERED: TERBUTALINE 1 MG/ML VIAL SQ PRN (08:21)
[2018-10-24] MEDS ORDERED: METHYLERGONOVINE 0.2 MG/ML 1 ML AMP IM PRN (08:21)
[2018-10-24] MEDS ORDERED: OXYTOCIN 10 UNIT/ML 1 ML VIAL IM PRN (08:21)
[2018-10-24] MEDS ORDERED: LIDOCAINE 0.5% (PF) 5 MG/ML (50 ML SDV) SQ PRN (08:21)
[2018-10-24] MEDS ORDERED: OXYTOCIN 30 UNITS/500 ML NS 30 UNIT in SALINE 1 500ML.BAG IV SCH (08:30)
[2018-10-24] MEDS ORDERED: LACTATED RINGERS 1,000 ML IV SCH ×2 (08:30→19:18)
[2018-10-24 08:35] LABS: Anisocytosis Slight; Basophils % (A) 0 %; Eosinophils # (A) 0.2 k/uL (0-0.7); Eosinophils % (A) 2 %; HCT 31.7 % (34.0-46.0); HGB 10.5 gm/dL (11.4-16.0); Lymphocytes # (A) 2.1 k/uL (1.0-4.8); Lymphocytes % (A) 21 %; MCH 27.5 pg (25.0-35.0); MCV 83.2 fL (80.0-100.0); Mean Platelet Volume 7.3; Monocytes # (A) 0.5 k/uL (0-1.0); Monocytes % (A) 5 %; Neutrophils # (A) 7.1 k/uL (1.3-7.7); Neutrophils % (A) 70 %; Platelet Count 296 k/uL (150-450); RBC 3.82 m/uL (3.80-5.40); RDW 16.2 % (11.5-15.5); WBC 10.2 k/uL (4.0-11.0)
[2018-10-24] MEDS ORDERED: fentaNYL (PF) 50 MCG/ML 5 ML AMP ONE (08:58)
[2018-10-24] MEDS ORDERED: ROPIVACAINE 5MG/ML 20ML VIAL ONE (08:58)
[2018-10-24] MEDS ORDERED: SODIUM CHLORIDE 0.9% 100 ML BAG ONE (08:58)
[2018-10-24] MEDS: LACTATED RINGERS 1,000 ML IV SCH ×2 (09:21→15:55)
[2018-10-24 09:39] VITALS: BMI 31.0
--- NOTE | 2018-10-24 12:38 | P.HPOB ---
History of Present Illness H&P Date: 10/24/18 Chief Complaint: IUP @ 39 1/7 weeks, Active labor This is a pleasant 18-year-old 2 para 0010 at 39 and one sevenths weeks that presents to labor and delivery with complaints of regular painful contractions. Patient states the contractions started throughout the night and became regular and uncomfortable therefore she presented to labor and delivery. Patient denied vaginal bleeding or loss of fluid. Patient notes good movement. Patient has been receiving routine care with myself since the first trimester. 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 In addition patient is noted an LGA baby 99th percentile 9/6 pounds at 38 weeks. MARTHA is always been on the upper limits of normal. bladder has always appeared normal. On blood work shows a blood type of A+, rubella nonimmune, RPR nonreactive, hepatitis B surface antigen negative, HIV negative, she did pass her 1 hour Glucola, group beta strep was negative on 09/26/18. Review of Systems Constitutional: Denies chills, Denies fatigue, Denies fever Ears, nose, mouth and throat: Denies headache Cardiovascular: Reports leg edema Respiratory: Denies dyspnea Gastrointestinal: Denies constipation, Denies diarrhea, Denies nausea, Denies vomiting Genitourinary: Reports Past Medical History Past Medical History: GERD/Reflux History of Any Multi-Drug Resistant Organisms: None Reported, ESBL Date of last positivie culture/infection: 12/25/17 MDRO Source:: URNE ESBL Past Surgical History: No Surgical Hx Reported Past Anesthesia/Blood Transfusion Reactions: No Reported Reaction Past Psychological History: Anxiety, Bipolar, Depression Smoking Status: Never smoker Past Alcohol Use History: None Reported Past Drug Use History: None Reported Medications and Allergies Home Medications Medication Instructions Recorded Confirmed Type No Known Home Medications 09/28/18 10/24/18 History Allergies Allergy/AdvReac Type Severity Reaction Status Date / Time No Known Allergies Allergy Verified 10/24/18 07:25 Exam Osteopathic Statement: *. No significant issues noted on an osteopathic structural exam other than those noted in the History and Physical/Consult. Vital Signs Temp Pulse Resp BP Pulse Ox 10/24/18 07:27 98.0 F 98 20 123/78 98 Intake and Output 10/23/18 10/24/18 10/24/18 22:59 06:59 14:59 Other: Weight 92.533 kg Targeted physical exam was performed and the state in general this is a well- nourished well-developed female in no acute distress, breathing is noted to be nonlabored heart has regular rate and rhythm abdomen is noted to be gravid, heart tones are category 1 and she is sergio every 2-3 minutes. On cervical exam she was 4/80/-2 Results Result Diagrams: 10/24/18 08:20 Abnormal Lab Results - Last 24 Hours (Table) 10/24/18 Range/Units 08:20 Hgb 10.5 L (11.4-16.0) gm/dL Hct 31.7 L (34.0-46.0) % RDW 16.2 H (11.5-15.5) % Assessment and Plan (1) Term Current Visit: Yes Status: Acute Code(s): Z34.90 - ENCNTR FOR SUPRVSN OF NORMAL , UNSP, UNSP TRIMESTER SNOMED Code(s): 71977840 (2) LGA (large for gestational age) fetus Current Visit: Yes Status: Acute Code(s): HXL8480 - SNOMED Code(s): 485169968 (3) Dilation of renal pelvis of fetus Current Visit: Yes Status: Acute Code(s): NSL9620 - SNOMED Code(s): 601115358 Plan: Patient admitted to labor and delivery for expectant management. Amniotomy after epidural per patient request. Plan ultrasound for multicystic/dilation of the renal pelvis. Concerned given pelvic exam as this remains high in the pelvis and her pelvic arch is very prominent.
[2018-10-24] MEDS ORDERED: CITRIC ACID-SODIUM CITRATE 15 ML CUP PO ONE (16:46)
[2018-10-24] MEDS ORDERED: MORPHINE SULFATE (PF) 0.3 MG/0.3 ML SYR ONE (17:01)
[2018-10-24] MEDS ORDERED: OXYTOCIN 10 UNIT/ML 1 ML VIAL ONE (17:01)
[2018-10-24] MEDS ORDERED: ONDANSETRON 4 MG/2 ML VIAL ONE (17:01)
--- NOTE | 2018-10-24 17:58 | P.OP ---
Date of Procedure: 10/24/18 Preoperative Diagnosis: IUP at 39 and 2/sevenths weeks, arrest of first stage of labor with cervical swelling noted, suspected LGA Postoperative Diagnosis: Same Procedure(s) Performed: Primary low transverse section Anesthesia: epidural Surgeon: Susi Reid Network Administrator #1: Tamara Valente Estimated Blood Loss (ml): 500 IV fluids (ml): 1,000 Urine output (ml): 50 Pathology: none sent Condition: stable Disposition: PACU Indications for Procedure: This pleasant 18-year-old 2 para 0010 at 39-1/7 weeks that presented to labor and delivery with complaints of regular painful contractions. Patient was admitted to labor and delivery and made very minimal record changer the day. Patient was noted to be 6 cm with cervical swelling with known large for gestational age baby decision was made to proceed with primary low transverse section. Although disappointed patient stated understanding. Operative Findings: An arcuate uterus was noted, male in vertex presentation noted weight of 9 lbs. 10 oz. at 1719 with Apgars of 9 and 9 at one and 5 minutes respectively. Description of Procedure: Patient was taken back to the operating suite where epidural anesthesia was found to be adequate. She was prepped and draped in normal sterile fashion in dorsal supine position. A Pfannenstiel skin incision made with the scalpel and carried through the underlying layer of fascia. The fascia was then incised in the midline and extended laterally. The superior aspect of the fascial incision was then grasped with ariel clamps, elevated and underlying rectus muscles dissected off sharply. The inferior aspect of the fascial incision was elevated with ariel clamps, elevated and underlying rectus muscle was dissected off sharply once again. The peritoneum was identified and entered. A bladder blade was then inserted into the abdominal cavity. The vesicouterine peritoneum was identified and a bladder flap was created using sharp and blunt dissection. At this point scalpel was used to make a hysterotomy incision the infant was delivered, The cord was doubly clamped and cut and the infant was handed off to awaiting RN. The placenta was delivered manually. The uterus cleared of all clots and debris. Uterine incision was closed with 0 Vicryl in a running locked fashion and a second layer of suture was used to obtain hemostasis. The pelvis then copiously irrigated and hysterotomy site was inspected once again small amount of bleeding was noted on the left-hand side of the incision therefore a [id number] suture 2 was used to obtain hemostasis. The uterus was then returned to the abdomen. The hysterotomy site was inspected hemostasis was appreciated the gutters were cleared of all clots and debris. The fascia was then closed with 0 Vicryl in a running fashion. The subcutaneous tissue was then irrigated and closed with 3-0 Vicryl in a running fashion. Skin was closed with 4-0 Vicryl in a subcuticular fashion. Steri-Strips and sterile dressings were applied as needed. All counts are correct 2 patient tolerated procedure well and was taken back to her room in stable condition.
[2018-10-24] MEDS ORDERED: IBUPROFEN IV 800 MG in SODIUM CHLORIDE 0.9% 250 ML IV ONE (18:01)
[2018-10-24] MEDS ORDERED: MEASLES-MUMPS-RUBELLA VACC/PF 12,500 UNIT/0.5 ML VIAL SQ ONE (19:18)
[2018-10-24] MEDS ORDERED: diphenhydrAMINE 50 MG CAP PO PRN (19:18)
[2018-10-24] MEDS ORDERED: NALOXONE 0.4 MG/ML 1 ML VIAL IV PRN (19:18)
[2018-10-24] MEDS ORDERED: HYDROcodone/APAP 5-325MG 1 EACH TAB PO PRN (19:18)
[2018-10-24] MEDS ORDERED: OXYTOCIN 20 UNITS/1000 ML NS 1,000 ML IV SCH (19:18)
[2018-10-24] MEDS ORDERED: ONDANSETRON 4 MG/2 ML VIAL IVP PRN (19:18)
[2018-10-24] MEDS ORDERED: diphenhydrAMINE 50 MG/ML 1 ML VIAL IVP PRN ×2 (19:18)
[2018-10-24] MEDS ORDERED: METOCLOPRAMIDE 5 MG/ML 2 ML VIAL IVP PRN (19:18)
[2018-10-24] MEDS ORDERED: ACETAMINOPHEN IV (For NPO) 1,000 MG in EMPTY BAG 1 BAG IVPB ONE (19:18)
[2018-10-24] MEDS ORDERED: ZOLPIDEM 5 MG TAB PO PRN (19:18)
[2018-10-24] MEDS ORDERED: diphenhydrAMINE 25 MG CAP PO PRN (19:18)
[2018-10-25] MEDS: SENNOSIDES-DOCUSATE SODIUM 1 EACH TAB PO SCH ×3 (01:50→23:28)
[2018-10-25] MEDS: IBUPROFEN 600 MG TAB PO PRN ×3 (01:58→14:52)
[2018-10-25 07:06] LABS: Basophils % (A) 0 %; Eosinophils # (A) 0.1 k/uL (0-0.7); Eosinophils % (A) 1 %; Lymphocytes # (A) 1.6 k/uL (1.0-4.8); Lymphocytes % (A) 14 %; MCHC 32.1 g/dL (31.0-37.0); MCV 83.9 fL (80.0-100.0); Mean Platelet Volume 7.8; Monocytes # (A) 0.7 k/uL (0-1.0); Monocytes % (A) 6 %; Neutrophils # (A) 8.9 k/uL (1.3-7.7); Neutrophils % (A) 77 %; Platelet Count 203 k/uL (150-450); RBC 2.86 m/uL (3.80-5.40); RDW 15.6 % (11.5-15.5); WBC 11.5 k/uL (4.0-11.0)
[2018-10-25 07:38] LABS: HGB 7.7 gm/dL (11.4-16.0)
--- NOTE | 2018-10-25 08:45 | P.PNOBGPC ---
Subjective - Subjective Principal diagnosis: Postop day 1 status post primary Interval history: Patient did well overnight. She is ambulating and voiding without difficulty. She is tolerating a regular diet without nausea or vomiting. She states her lochia is moderate. She is breast-feeding without difficulty. She states her pain is well-controlled. Patient reports: Reports appetite normal, Reports voiding normally, Reports pain well controlled, Reports ambulating normally : doing well, nursing well Objective - Vital Signs Latest vital signs: Vital Signs Temp Pulse Resp BP Pulse Ox 10/24/18 20:05 97.5 F L 76 16 132/81 10/24/18 19:50 105 H 18 138/86 10/24/18 19:35 97.5 F L 80 18 131/82 10/24/18 18:50 89 16 131/70 96 10/24/18 18:35 76 16 130/70 98 10/24/18 18:20 87 18 126/79 98 10/24/18 18:05 89 18 135/83 98 10/24/18 17:50 98.8 F 80 16 134/80 98 Intake and Output 10/24/18 10/25/18 10/25/18 22:59 06:59 14:59 Output Total 700 600 Balance -700 -600 Output: Urine 700 600 Uretheral (Bass) 600 Other: Voiding Method Indwelling Catheter - Exam Extremities: Present: normal Abdomen: Present: normal appearance, soft Incision: Present: normal, dry, intact Uterus: Present: normal, firm - Labs Labs: Abnormal Lab Results - Last 24 Hours (Table) 10/25/18 Range/Units 06:40 WBC 11.5 H (4.0-11.0) k/uL RBC 2.86 L (3.80-5.40) m/uL Hgb 7.7 L D (11.4-16.0) gm/dL Hct 24.0 L (34.0-46.0) % RDW 15.6 H (11.5-15.5) % Neutrophils # 8.9 H (1.3-7.7) k/uL Assessment and Plan (1) Term Current Visit: Yes Status: Acute Code(s): Z34.90 - ENCNTR FOR SUPRVSN OF NORMAL , UNSP, UNSP TRIMESTER SNOMED Code(s): 21800234 (2) LGA (large for gestational age) fetus Current Visit: Yes Status: Acute Code(s): EWC6434 - SNOMED Code(s): 342850296 (3) Dilation of renal pelvis of fetus Current Visit: Yes Status: Acute Code(s): NBP4529 - SNOMED Code(s): 715578064 (4) Status post delivery Current Visit: Yes Status: Acute Code(s): Z98.891 - HISTORY OF UTERINE SCAR FROM PREVIOUS SURGERY SNOMED Code(s): 155228324 Plan: Patient is doing well postoperatively. We will encourage increased ambulation today. Rest pump prescription is written and on chart so patient can obtained prior to discharge. We will continue routine postoperative care.
[2018-10-25] MEDS: ACETAMINOPHEN TAB 325 MG TAB PO PRN (19:53)
[2018-10-26] MEDS: IBUPROFEN 600 MG TAB PO PRN ×3 (01:39→15:47)
[2018-10-26] MEDS: ACETAMINOPHEN TAB 325 MG TAB PO PRN ×2 (04:30→11:13)
[2018-10-26] MEDS: SENNOSIDES-DOCUSATE SODIUM 1 EACH TAB PO SCH (07:50)
--- NOTE | 2018-10-26 08:15 | P.DS ---
Providers Date of admission: 10/24/18 07:47 Expected date of discharge: 10/26/18 Attending physician: Susi Reid Primary care physician: Stated None - Discharge Diagnosis(es) (1) Term Current Visit: Yes Status: Acute (2) LGA (large for gestational age) fetus Current Visit: Yes Status: Acute (3) Dilation of renal pelvis of fetus Current Visit: Yes Status: Acute (4) Status post delivery Current Visit: Yes Status: Acute Hospital Course: This is a 18-year-old 2 para 0010 this presented to labor and delivery at 39 and one sevenths weeks on 10/24. Patient was admitted regular painful contractions were noted every 2 minutes. Patient had been receiving routine care with myself since the first trimester. On the 20 week ultrasound and multicystic/dilation of the renal pelvis was noted MFM consultation was noted in any testing was ordered. renal ultrasound was recommended after delivery. Patient progressed through labor becoming uncomfortable requesting epidural placement. After epidural was placed by the anesthesia department amniotomy was performed and clear fluid was obtained. Patient was noted to be 6 cm patient stalled at this dilation and cervical swelling was noted. Secondary to the knowledge that this had been measuring large and no descent since admission decision was made to take the patient for a primary low transverse section. was performed without difficulty for further details on the please see the operative report. Patient's postoperative course has been essentially uneventful. On this postop day #2 she is ambulating and voiding without difficulty. She is tolerating a regular diet without nausea or vomiting. She is stating her pain is controlled with oral Calvert/Motrin. She does wish discharge home today. This patient delivered a viable male infant at 1719, weight of 9 lbs. 10 oz. and Apgars of 9 and 9 at one and 5 minutes respectively. Patient Condition at Discharge: Good Plan - Discharge Summary Discharge Rx Participant: Yes New Discharge Prescriptions: No Action No Known Home Medications Discharge Medication List No Known Home Medications 09/28/18 [History] Follow up Appointment(s)/Referral(s): Susi Reid DO [Doctor of Osteopathic Medicine] - 2 Weeks Patient Instructions/Handouts: (DC), (GEN) Discharge Disposition: HOME SELF-CARE
[2018-10-26 09:29] VITALS: RESP 20
[2018-10-26 09:31] VITALS: BP 117/78; PULSE 117; TEMP 97.5
== END 2018-10-26 17:10 | disposition home or self-care (01) | DRG 788 ==
LOC: FBPOP 07:19 → 4FBP 07:47
PROVIDERS: ADMIT Obstetrics & Gynecology Obstetrics; ATTEND Obstetrics & Gynecology Obstetrics
PROC: 10D00Z1 Extraction of Products of Conception, Low, Open Approach (ICD-10-PCS; principal; 2018-10-24 17:04)
DX: O36.63X0 Maternal care for excessive fetal growth, third trimester, not applicable or unspecified (principal); O99.62 Diseases of the digestive system complicating childbirth; K21.9 Gastro-esophageal reflux disease without esophagitis; O99.344 Other mental disorders complicating childbirth; F31.9 Bipolar disorder, unspecified; F41.9 Anxiety disorder, unspecified; Q51.810 Arcuate uterus; Z37.0 Single live birth; Z3A.39 39 weeks gestation of pregnancy
CPT/HCPCS: 59025; 85025; 86850; 86900; 86901; 90707; 99213

== ENCOUNTER 2019-09-06 02:36 | Emergency (ER) | payer MEDICAID, OTHER ==
[2019-09-06 02:51] VITALS: TEMP 98.1
--- NOTE | 2019-09-06 03:32 | ED ---
Anxiety HPI - General Chief Complaint: Anxiety Stated Complaint: anxiety Time Seen by Provider: 09/06/19 02:56 Source: patient Mode of arrival: ambulatory Limitations: no limitations - History of Present Illness Initial Comments: This patient is a 19-year-old woman presenting to have evaluation for anxiety with some chest tightness. The patient states that she has been working and also trying to care for her young daughter without much support. She has not been sleeping well and is under stress. No suicidal ideation or severe depression. MD Complaint: anxiety -: hour(s) Symptoms: chest pain, dry mouth Place: work Previous History of Same: Yes Severity: moderate Quality: constant Provoking factors: emotional stress, work/job stress Improves With: nothing Worsens With: nothing Associated symptoms: chest pain - Related Data Home Medications: Home Medications Medication Instructions Recorded Confirmed No Known Home Medications 09/28/18 10/24/18 Allergies/Adverse Reactions: Allergies Allergy/AdvReac Type Severity Reaction Status Date / Time No Known Allergies Allergy Verified 09/06/19 02:50 Review of Systems ROS Statement: Those systems with pertinent positive or pertinent negative responses have been documented in the HPI. ROS Other: All systems not noted in ROS Statement are negative. Constitutional: Denies: fever, chills Eyes: Denies: vision change Respiratory: Denies: cough, dyspnea Cardiovascular: Reports: as per HPI, chest pain. Denies: palpitations, orthopnea, syncope Gastrointestinal: Denies: abdominal pain, vomiting Genitourinary: Denies: dysuria, hematuria Musculoskeletal: Denies: back pain Skin: Denies: rash Neurological: Denies: headache Psychiatric: Reports: anxiety. Denies: depression, suicidal thoughts Past Medical History Past Medical History: GERD/Reflux History of Any Multi-Drug Resistant Organisms: None Reported, ESBL Date of last positivie culture/infection: 12/25/17 MDRO Source:: URNE ESBL Past Surgical History: No Surgical Hx Reported Past Anesthesia/Blood Transfusion Reactions: No Reported Reaction Past Psychological History: Anxiety, Bipolar, Depression Smoking Status: Vaper Past Alcohol Use History: None Reported Past Drug Use History: None Reported General Exam Limitations: no limitations General appearance: alert, in no apparent distress, anxious Head exam: Present: atraumatic, normocephalic Eye exam: Present: normal appearance Neck exam: Present: normal inspection Respiratory exam: Present: normal lung sounds bilaterally. Absent: respiratory distress, wheezes, rales, rhonchi, stridor Cardiovascular Exam: Present: regular rate, normal rhythm, normal heart sounds. Absent: systolic murmur, diastolic murmur, rubs, gallop GI/Abdominal exam: Present: soft. Absent: distended, tenderness, guarding, rebound, rigid, mass Extremities exam: Present: normal inspection, normal capillary refill. Absent: pedal edema, calf tenderness Neurological exam: Present: alert Psychiatric exam: Present: anxious. Absent: depressed, homicidal ideation, suicidal ideation Skin exam: Present: warm, dry, intact, normal color. Absent: rash Course Vital Signs 09/06/19 09/06/19 02:45 04:18 Temperature 98.1 F Pulse Rate 100 77 Respiratory 20 18 Rate Blood Pressure 132/77 110/56 O2 Sat by Pulse 100 98 Oximetry Medical Decision Making - EKG Data -: EKG Interpreted by Me EKG shows normal: sinus rhythm, axis (Normal), intervals (Normal), QRS complexes (Normal), ST-T waves (Normal) Rate: normal (Rate 70 bpm) Interpretation: normal EKG Disposition Clinical Impression: Acute anxiety Disposition: HOME SELF-CARE Condition: Good Instructions (If sedation given, give patient instructions): Generalized Anxiety Disorder (ED) Is patient prescribed a controlled substance at d/c from ED?: No Referrals: Lamont Joshi DO [Primary Care Provider] - 1-2 days
--- NOTE | 2019-09-06 03:34 | XR ---
EXAMINATION TYPE: XR chest 2V DATE OF EXAM: 09/06/2019 COMPARISON: 05/04/2018 HISTORY: Chest pain TECHNIQUE: FINDINGS: Heart and mediastinum are normal. Lungs are clear. Diaphragm is normal. Bony thorax appears normal. IMPRESSION: Normal chest. No change.
[2019-09-06 04:20] VITALS: BP 110/56; PULSE 77; RESP 18
== END 2019-09-06 04:18 | disposition home or self-care (01) ==
LOC: EC 02:36
DX: F41.9 Anxiety disorder, unspecified (principal); F17.290 Nicotine dependence, other tobacco product, uncomplicated
CPT/HCPCS: 71046; 93005; 99283

== ENCOUNTER 2019-09-07 01:26 | Emergency (ER) | payer MEDICAID, OTHER ==
[2019-09-07 01:32] VITALS: BP 123/84; PULSE 85; RESP 18; TEMP 98.5
--- NOTE | 2019-09-07 01:49 | ED ---
Recheck HPI - General Chief Complaint: Recheck/Abnormal Lab/Rx Stated Complaint: Possible covid exposure Time Seen by Provider: 09/07/19 01:42 Source: patient Mode of arrival: ambulatory Limitations: no limitations - History of Present Illness Initial Comments: 19-year-old female patient presents to the emergency department today requesting testing for Covid-19. 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 Patient states that she has been feeling somewhat short of breath and having intermittent chest pain. States that she was evaluated in the emergency department yesterday for similar symptoms, did have chest x-rays which were negative. She believes it may be related to her anxiety but she is unsure if she has the virus. She is requesting testing. She denies any current shortness of breath or chest pain. Denies fever or chills. Denies any nasal congestion or drainage. Denies any rash. - Related Data Home Medications Medication Instructions Recorded Confirmed No Known Home Medications 09/28/18 10/24/18 Allergies Allergy/AdvReac Type Severity Reaction Status Date / Time No Known Allergies Allergy Verified 09/06/19 02:50 Review of Systems ROS Statement: Those systems with pertinent positive or pertinent negative responses have been documented in the HPI. ROS Other: All systems not noted in ROS Statement are negative. Past Medical History Past Medical History: GERD/Reflux History of Any Multi-Drug Resistant Organisms: None Reported, ESBL Date of last positivie culture/infection: 12/25/17 MDRO Source:: URNE ESBL Past Surgical History: No Surgical Hx Reported Past Anesthesia/Blood Transfusion Reactions: No Reported Reaction Past Psychological History: Anxiety, Bipolar, Depression Smoking Status: Vaper Past Alcohol Use History: None Reported Past Drug Use History: None Reported General Exam Limitations: no limitations General appearance: alert, in no apparent distress, other (This is a well- developed, well-nourished adult female patient in no acute distress. Vital signs upon presentation are temperature 98.5F, pulse 85, respirations 18, blood pressure 123/84, pulse ox 98% on room air.) Respiratory exam: Present: normal lung sounds bilaterally. Absent: respiratory distress, wheezes, rales, rhonchi, stridor Cardiovascular Exam: Present: regular rate, normal rhythm, normal heart sounds. Absent: systolic murmur, diastolic murmur, rubs, gallop, clicks GI/Abdominal exam: Present: soft, normal bowel sounds. Absent: distended, tenderness, guarding, rebound, rigid Psychiatric exam: Present: normal affect, normal mood Skin exam: Present: warm, dry, intact, normal color. Absent: rash Course Vital Signs 09/07/19 09/07/19 01:28 01:49 Temperature 98.5 F Pulse Rate 85 Respiratory 18 18 Rate Blood Pressure 123/84 O2 Sat by Pulse 98 Oximetry Medical Decision Making - Medical Decision Making 19-year-old female patient presents to the emergency department today requesting testing for COVID-19. She states she is exposed at work. States she is having intermittent shortness of breath and chest pain. She had negative chest x-rays yesterday. She will be tested and discharged home to follow-up with her primary care physician for recheck in 1-2 days. Return parameters were discussed in detail. She verbalizes understanding and agrees with this plan. Disposition Clinical Impression: Encounter for laboratory testing for COVID-19 virus Disposition: HOME SELF-CARE Condition: Good Instructions (If sedation given, give patient instructions): Dyspnea (ED) Additional Instructions: Follow-up with your primary care physician for recheck in 1-2 days. Return to the emergency department immediately for any new, worsening, or concerning symptoms. Is patient prescribed a controlled substance at d/c from ED?: No Referrals: Lamont Joshi DO [Primary Care Provider] - 1-2 days Time of Disposition: 01:49
== END 2019-09-07 01:58 | disposition home or self-care (01) ==
LOC: EC 01:26
DX: Z20.828 Contact with and (suspected) exposure to other viral communicable diseases (principal); R06.02 Shortness of breath; R07.9 Chest pain, unspecified; F17.290 Nicotine dependence, other tobacco product, uncomplicated
CPT/HCPCS: 99284; U0003

== ENCOUNTER 2019-11-18 08:44 | Emergency (ER) | payer MEDICAID, OTHER ==
[2019-11-18 08:48] VITALS: BP 131/70; PULSE 112; RESP 18; TEMP 98.2
[2019-11-18] MEDS ORDERED: SODIUM CHLORIDE 0.9% 1,000 ML IV ONE (09:01)
[2019-11-18] MEDS ORDERED: KETOROLAC 15 MG/ML 1 ML VIAL IVP STA (09:02)
[2019-11-18] MEDS ORDERED: ONDANSETRON 4 MG/2 ML VIAL IVP STA (09:05)
[2019-11-18] MEDS ORDERED: cefTRIAXone IN SWFI 1,000 MG/10 ML SYRINGE IVP STA (09:05)
--- NOTE | 2019-11-18 09:08 | ED ---
Female Urogenital HPI - General Chief complaint: Urogenital Stated complaint: UTI Time Seen by Provider: 11/18/19 08:49 Source: patient, RN notes reviewed, old records reviewed Mode of arrival: ambulatory Limitations: no limitations - History of Present Illness Initial comments: Patient is a 19-year-old female presents the ER today for evaluation for dysuria or polyuria for the past 3 days. Patient states that she woke up this morning complaining of left flank pain. She reports that she started to have the flank pain just today. She's had history of UTIs the past. She denies any nausea or vomiting. She states it is difficult for her to be comfortable due to the flank pain. She denies any history of kidney stones. She complains of some chills but denies any recorded fevers. - Related Data Previous Rx's Medication Instructions Recorded Cephalexin [Keflex] 500 mg PO Q6HR 10 Days #40 cap 11/18/19 Ibuprofen [Motrin] 600 mg PO Q8HR PRN #30 tab 11/18/19 Phenazopyridine [Pyridium] 100 mg PO TID #9 tablet 11/18/19 Allergies Allergy/AdvReac Type Severity Reaction Status Date / Time No Known Allergies Allergy Verified 11/18/19 08:48 Review of Systems ROS Statement: Those systems with pertinent positive or pertinent negative responses have been documented in the HPI. ROS Other: All systems not noted in ROS Statement are negative. Past Medical History Past Medical History: GERD/Reflux History of Any Multi-Drug Resistant Organisms: None Reported, ESBL Date of last positivie culture/infection: 12/25/17 MDRO Source:: URNE ESBL Past Surgical History: Section Past Anesthesia/Blood Transfusion Reactions: No Reported Reaction Past Psychological History: Anxiety, Bipolar, Depression Smoking Status: Vaper Past Alcohol Use History: None Reported Past Drug Use History: None Reported General Exam - General Exam Comments Initial Comments: 19-year-old female. Alert and oriented 3. No distress. Limitations: no limitations General appearance: alert, in no apparent distress Head exam: Present: atraumatic, normocephalic, normal inspection Eye exam: Present: normal appearance, PERRL, EOMI. Absent: scleral icterus, conjunctival injection, periorbital swelling ENT exam: Present: normal exam, mucous membranes moist Neck exam: Present: normal inspection. Absent: tenderness, meningismus, l ymphadenopathy Respiratory exam: Present: normal lung sounds bilaterally. Absent: respiratory distress, wheezes, rales, rhonchi, stridor Cardiovascular Exam: Present: regular rate, normal rhythm, normal heart sounds. Absent: systolic murmur, diastolic murmur, rubs, gallop, clicks GI/Abdominal exam: Present: soft, normal bowel sounds, other (Left CVA tenderness). Absent: distended, tenderness, guarding, rebound, rigid Extremities exam: Present: normal inspection, full ROM, normal capillary refill. Absent: tenderness, pedal edema, joint swelling, calf tenderness Back exam: Present: normal inspection Neurological exam: Present: alert, oriented X3, CN II-XII intact Psychiatric exam: Present: normal affect, normal mood Skin exam: Present: warm, dry, intact, normal color. Absent: rash Course Vital Signs 11/18/19 08:46 Temperature 98.2 F Pulse Rate 112 H Respiratory 18 Rate Blood Pressure 131/70 O2 Sat by Pulse 99 Oximetry - Reevaluation(s) Reevaluation #1: 11/18/19 10:16 Patient is reevaluated and resting comfortably in bed. Saying her pain is improved after Toradol. Medical Decision Making - Medical Decision Making Pleasant 19-year-old female presents with 3 days of UTI symptoms now complaining of left flank pain starting this morning. She's been on no antibiotic. Patient UA shows signs of red blood cells and white cells. Urine culture be completed. She feels improved after IV fluids and Toradol. She is given 1 dose of Rocephin emergency department. Discussed treating the Patient for UTI with Tylenol pyelonephritis. Discussed case with Dr. Packer and reviewed case. Discussed starting Patient on antibiotics and pain medication and close PCP follow-up. Discussed return parameters. - Lab Data Result diagrams: 11/18/19 09:28 11/18/19 09:28 Lab Results 11/18/19 11/18/19 11/18/19 Range/Units 09:23 09:23 09:28 WBC 7.9 (3.8-10.6) k/uL RBC 4.77 (3.80-5.40) m/uL Hgb 11.7 (11.4-16.0) gm/dL Hct 37.8 (34.0-46.0) % MCV 79.2 L (80.0-100.0) fL MCH 24.4 L (25.0-35.0) pg MCHC 30.9 L (31.0-37.0) g/dL RDW 14.9 (11.5-15.5) % Plt Count 289 (150-450) k/uL Neutrophils % 66 % Lymphocytes % 26 % Monocytes % 5 % Eosinophils % 2 % Basophils % 0 % Neutrophils # 5.2 (1.3-7.7) k/uL Lymphocytes # 2.0 (1.0-4.8) k/uL Monocytes # 0.4 (0-1.0) k/uL Eosinophils # 0.2 (0-0.7) k/uL Basophils # 0.0 (0-0.2) k/uL Sodium (137-145) mmol/L Potassium (3.5-5.1) mmol/L Chloride (98-107) mmol/L Carbon Dioxide (22-30) mmol/L Anion Gap mmol/L BUN (7-17) mg/dL Creatinine (0.52-1.04) mg/dL Est GFR (CKD-EPI)AfAm (>60 ml/min/1.73 sqM) Est GFR (CKD-EPI)NonAf (>60 ml/min/1.73 sqM) Glucose (74-99) mg/dL Calcium (8.4-10.2) mg/dL Total Bilirubin (0.2-1.3) mg/dL AST (14-36) U/L ALT (4-34) U/L Alkaline Phosphatase (38-126) U/L Total Protein (6.3-8.2) g/dL Albumin (3.5-5.0) g/dL Urine Color Yellow Urine Appearance Turbid H (Clear) Urine pH 7.0 (5.0-8.0) Ur Specific [place] 1.026 (1.001-1.035) Urine Protein 2+ H (Negative) Urine Glucose (UA) Negative (Negative) Urine Ketones Negative (Negative) Urine Blood Large H (Negative) Urine Nitrite Negative (Negative) Urine Bilirubin Negative (Negative) Urine Urobilinogen <2.0 (<2.0) mg/dL Ur Leukocyte Esterase Moderate H (Negative) Urine RBC 67 H (0-5) /hpf Urine WBC 116 H (0-5) /hpf Ur Squamous Epith Cells 12 H (0-4) /hpf Triple Phos Crystals Occasional H (None) /hpf Amorphous Sediment Rare H (None) /hpf Urine Mucus Moderate H (None) /hpf Urine HCG, Qual Not Detected (Not Detectd) 11/18/19 Range/Units 09:28 WBC (3.8-10.6) k/uL RBC (3.80-5.40) m/uL Hgb (11.4-16.0) gm/dL Hct (34.0-46.0) % MCV (80.0-100.0) fL MCH (25.0-35.0) pg MCHC (31.0-37.0) g/dL RDW (11.5-15.5) % Plt Count (150-450) k/uL Neutrophils % % Lymphocytes % % Monocytes % % Eosinophils % % Basophils % % Neutrophils # (1.3-7.7) k/uL Lymphocytes # (1.0-4.8) k/uL Monocytes # (0-1.0) k/uL Eosinophils # (0-0.7) k/uL Basophils # (0-0.2) k/uL Sodium 138 (137-145) mmol/L Potassium 4.2 (3.5-5.1) mmol/L Chloride 109 H (98-107) mmol/L Carbon Dioxide 22 (22-30) mmol/L Anion Gap 7 mmol/L BUN 10 (7-17) mg/dL Creatinine 0.66 (0.52-1.04) mg/dL Est GFR (CKD-EPI)AfAm >90 (>60 ml/min/1.73 sqM) Est GFR (CKD-EPI)NonAf >90 (>60 ml/min/1.73 sqM) Glucose 101 H (74-99) mg/dL Calcium 9.0 (8.4-10.2) mg/dL Total Bilirubin 1.4 H (0.2-1.3) mg/dL AST 20 (14-36) U/L ALT 10 (4-34) U/L Alkaline Phosphatase 79 (38-126) U/L Total Protein 7.4 (6.3-8.2) g/dL Albumin 4.2 (3.5-5.0) g/dL Urine Color Urine Appearance (Clear) Urine pH (5.0-8.0) Ur Specific [place] (1.001-1.035) Urine Protein (Negative) Urine Glucose (UA) (Negative) Urine Ketones (Negative) Urine Blood (Negative) Urine Nitrite (Negative) Urine Bilirubin (Negative) Urine Urobilinogen (<2.0) mg/dL Ur Leukocyte Esterase (Negative) Urine RBC (0-5) /hpf Urine WBC (0-5) /hpf Ur Squamous Epith Cells (0-4) /hpf Triple Phos Crystals (None) /hpf Amorphous Sediment (None) /hpf Urine Mucus (None) /hpf Urine HCG, Qual (Not Detectd) - Radiology Data Radiology results: report reviewed Disposition Clinical Impression: Pyelonephritis Disposition: HOME SELF-CARE Condition: Good Instructions (If sedation given, give patient instructions): Urinary Tract Infection in Women (ED) Additional Instructions: Please use medication as discussed. Please follow up with family doctor if symptoms have not improved over the next two days. Please return to the emergency room if your symptoms increase or worsen or for any other concerns. Prescriptions: Cephalexin [Keflex] 500 mg PO Q6HR 10 Days #40 cap Ibuprofen [Motrin] 600 mg PO Q8HR PRN #30 tab PRN Reason: Pain Phenazopyridine [Pyridium] 100 mg PO TID #9 tablet Is patient prescribed a controlled substance at d/c from ED?: No Referrals: None,Stated [Primary Care Provider] - 1-2 days Time of Disposition: 10:18
[2019-11-18 09:43] LABS: Basophils % (A) 0 %; Eosinophils # (A) 0.2 k/uL (0-0.7); Eosinophils % (A) 2 %; HCT 37.8 % (34.0-46.0); HGB 11.7 gm/dL (11.4-16.0); Lymphocytes % (A) 26 %; MCH 24.4 pg (25.0-35.0); MCHC 30.9 g/dL (31.0-37.0); MCV 79.2 fL (80.0-100.0); Mean Platelet Volume 7.7; Monocytes # (A) 0.4 k/uL (0-1.0); Monocytes % (A) 5 %; Neutrophils # (A) 5.2 k/uL (1.3-7.7); Neutrophils % (A) 66 %; Platelet Count 289 k/uL (150-450); RBC 4.77 m/uL (3.80-5.40); RDW 14.9 % (11.5-15.5); WBC 7.9 k/uL (3.8-10.6)
[2019-11-18 09:46] LABS: ALT 10 U/L (4-34); AST 20 U/L (14-36); African American GFR (CKD) >90 (>60 ml/min/1.73 sqM); Albumin 4.2 g/dL (3.5-5.0); Alkaline Phosphatase 79 U/L (38-126); Anion Gap 7 mmol/L; Blood Urea Nitrogen 10 mg/dL (7-17); Carbon Dioxide 22 mmol/L (22-30); Chloride 109 mmol/L (98-107); Glucose 101 mg/dL (74-99); Non-African American GFR(CKD) >90 (>60 ml/min/1.73 sqM); Potassium 4.2 mmol/L (3.5-5.1); Sodium 138 mmol/L (137-145); Total Bilirubin 1.4 mg/dL (0.2-1.3); Total Protein 7.4 g/dL (6.3-8.2)
[2019-11-18 09:47] LABS: Amorphous Sediment,Urine Rare /hpf; Appearance,Urine Turbid (Clear); Bilirubin,Urine Negative (Negative); Blood,Urine Large (Negative); Color,Urine Yellow; Glucose,Urine (UA) Negative (Negative); Ketones,Urine Negative (Negative); Leukocyte Esterase,Urine Moderate (Negative); Mucus,Urine Moderate /hpf; Nitrite,Urine Negative (Negative); Protein,Urine 2+ (Negative); RBC,Urine 67 /hpf (0-5); Specific Gravity,Urine 1.026 (1.001-1.035); Squamous Epithelial Cell,Urine 12 /hpf (0-4); Triple Phosphate Crystal,Urine Occasional /hpf; Urobilinogen,Urine <2.0 mg/dL (<2.0); WBC,Urine 116 /hpf (0-5)
== END 2019-11-18 10:30 | disposition home or self-care (01) ==
LOC: EC 08:44
DX: N12 Tubulo-interstitial nephritis, not specified as acute or chronic (principal); F17.210 Nicotine dependence, cigarettes, uncomplicated; Z98.890 Other specified postprocedural states; Z87.19 Personal history of other diseases of the digestive system
CPT/HCPCS: 36415; 80053; 85025; 81001; 81025; 87086; 99284; 96374; 96375 ×2; 96361; J2405; J0696; J1885

== ENCOUNTER → 2022-10-05 | Outpatient (CLI) | payer OTHER ==
--- NOTE | 2022-10-05 09:00 | US ---
EXAMINATION TYPE: US abdomen complete DATE OF EXAM: 10/05/2022 COMPARISON: NONE CLINICAL INDICATION: Female, 22 years old with history of R10.9 UNSPECIFIED ABDOMINAL PAIN; Generaliz ed pain. Patient states weight loss. Nausea. TECHNIQUE: Multiple sonographic images of the abdomen are obtained. FINDINGS: EXAM MEASUREMENTS: Liver Length: 14.9 cm Gallbladder Wall: 0.1 cm CBD: 0.2 cm Spleen: 11.4 cm Right Kidney: 10.9 x 4.8 x 4.5 cm Left Kidney: 10.3 x 4.3 x 5.0 cm Pancreas: wnl Liver: wnl Gallbladder: No stones, wall thickening or sludge visualized. Evidence for sonographic Carter's sign: neg CBD: wnl Spleen: wnl Right Kidney: No hydronephrosis or masses seen Left Kidney: No hydronephrosis or masses seen Upper IVC: wnl Abd Aorta: No AAA visualized at time of scan The liver is homogenous. The intrahepatic portion of the IVC and proximal abdominal aorta are within normal limits. There is no evidence of cholelithiasis. Common bile duct is unremarkable. The visu alized portions of the pancreas are homogenous. The spleen is unremarkable. Kidneys are symmetric a nd free of hydronephrosis. No renal lesions are seen. IMPRESSION: No discrete abnormality seen.
== END | disposition home or self-care (01) ==
LOC: RADUSWWP 07:36
PROVIDERS: ATTEND Student in an Organized Health Care Education/Training Program
DX: R10.84 Generalized abdominal pain (principal); R63.4 Abnormal weight loss; R11.0 Nausea
CPT/HCPCS: 76700

== ENCOUNTER 2022-12-16 19:28 | Emergency (ER) | payer OTHER ==
[2022-12-16 20:26] VITALS: BP 112/68; PULSE 81; RESP 16; TEMP 98.5
[2022-12-16] MEDS ORDERED: KETOROLAC 15 MG/ML 1 ML VIAL IVP STA (21:13)
[2022-12-16] MEDS ORDERED: ONDANSETRON 4 MG/2 ML VIAL IVP STA (21:13)
[2022-12-16 21:56] LABS: ALT 12 U/L (4-34); AST 22 U/L (14-36); African American GFR (CKD) >90 (>60 ml/min/1.73 sqM); Albumin 4.4 g/dL (3.5-5.0); Alkaline Phosphatase 51 U/L (38-126); Amylase 112 U/L (30-110); Anion Gap 10 mmol/L; Blood Urea Nitrogen 14 mg/dL (7-17); Calcium 9.2 mg/dL (8.4-10.2); Carbon Dioxide 24 mmol/L (22-30); Chloride 105 mmol/L (98-107); Glucose 100 mg/dL (74-99); Lipase 166 U/L (23-300); Non-African American GFR(CKD) >90 (>60 ml/min/1.73 sqM); Sodium 139 mmol/L (137-145); Total Bilirubin 1.5 mg/dL (0.2-1.3); Total Protein 7.4 g/dL (6.3-8.2)
[2022-12-16 22:01] LABS: Appearance,Urine Clear (Clear); Bacteria,Urine Moderate /hpf; Bilirubin,Urine Negative (Negative); Blood,Urine Negative (Negative); Color,Urine Colorless; Glucose,Urine (UA) Negative (Negative); Ketones,Urine Negative (Negative); Leukocyte Esterase,Urine Negative (Negative); Mucus,Urine Rare /hpf; Nitrite,Urine Positive (Negative); PH, Urine 6.5 (5.0-8.0); Protein,Urine Negative (Negative); Specific Gravity,Urine 1.014 (1.001-1.035); Squamous Epithelial Cell,Urine 1 /hpf (0-4); Urobilinogen,Urine <2.0 mg/dL (<2.0)
[2022-12-16 22:14] LABS: Basophils % (A) 0 %; Eosinophils # (A) 0.1 k/uL (0-0.7); Eosinophils % (A) 2 %; HCT 37.5 % (34.0-46.0); HGB 12.2 gm/dL (11.4-16.0); Lymphocytes # (A) 1.3 k/uL (1.0-4.8); Lymphocytes % (A) 22 %; MCH 27.4 pg (25.0-35.0); MCHC 32.6 g/dL (31.0-37.0); MCV 84.3 fL (80.0-100.0); Mean Platelet Volume 8.6; Monocytes # (A) 0.3 k/uL (0-1.0); Monocytes % (A) 5 %; Neutrophils # (A) 4.3 k/uL (1.3-7.7); Neutrophils % (A) 70 %; Platelet Count 205 k/uL (150-450); RBC 4.46 m/uL (3.80-5.40); RDW 14.7 % (11.5-15.5); WBC 6.1 k/uL (3.8-10.6)
--- NOTE | 2022-12-16 22:38 | ED ---
General Adult HPI - General Chief complaint: Nausea/Vomiting/Diarrhea Stated complaint: Abd pain, nausea Time Seen by Provider: 12/16/22 20:52 Source: patient Mode of arrival: ambulatory Limitations: no limitations - History of Present Illness Initial comments: 22-year-old female presenting with chief complaint of nausea, abdominal pain, and diarrhea. Symptoms started today. Patient admits to dysuria. No flank pain. No fevers. No hematuria. No chest pain or difficulty breathing. No URI like symptoms. - Related Data Previous Rx's Medication Instructions Recorded Cephalexin [Keflex] 500 mg PO Q6HR 10 Days #40 cap 11/18/19 Ibuprofen [Motrin] 600 mg PO Q8HR PRN #30 tab 11/18/19 Phenazopyridine [Pyridium] 100 mg PO TID #9 tablet 11/18/19 Famotidine [Pepcid] 20 mg PO BID #28 tablet 04/02/22 hydrOXYzine HCL [Atarax] 50 mg PO Q8H PRN #15 tablet 04/02/22 Cephalexin [Keflex] 500 mg PO Q12HR 7 Days #14 cap 12/16/22 Ondansetron Odt [Zofran Odt] 4 mg PO Q8HR PRN #20 tab 12/16/22 Allergies Allergy/AdvReac Type Severity Reaction Status Date / Time metoclopramide [From Reglan] AdvReac Hallucinati Verified 12/16/22 20:06 ons Review of Systems ROS Statement: Those systems with pertinent positive or pertinent negative responses have been documented in the HPI. ROS Other: All systems not noted in ROS Statement are negative. Past Medical History Past Medical History: GERD/Reflux History of Any Multi-Drug Resistant Organisms: ESBL, Other MDRO Date of last positivie culture/infection: 12/25/17 MDRO Source:: URNE ESBL Past Surgical History: Section Past Anesthesia/Blood Transfusion Reactions: No Reported Reaction Past Psychological History: Anxiety, Bipolar, Depression Smoking Status: Vaper Past Alcohol Use History: None Reported Past Drug Use History: None Reported General Exam Limitations: no limitations General appearance: alert, in no apparent distress Head exam: Present: atraumatic, normocephalic, normal inspection Eye exam: Present: normal appearance, EOMI Neck exam: Present: normal inspection, full ROM Respiratory exam: Present: normal lung sounds bilaterally. Absent: respiratory distress, wheezes, rales, rhonchi, stridor Cardiovascular Exam: Present: regular rate, normal rhythm, normal heart sounds. Absent: systolic murmur, diastolic murmur, rubs, gallop, clicks GI/Abdominal exam: Present: soft, tenderness (Nonspecific). Absent: distended, guarding, rebound, rigid Neurological exam: Present: alert, oriented X3 Psychiatric exam: Present: normal affect, normal mood Skin exam: Present: warm, dry, intact, normal color. Absent: rash Course Vital Signs 12/16/22 20:06 Temperature 98.5 F Pulse Rate 81 Respiratory 16 Rate Blood Pressure 112/68 O2 Sat by Pulse 100 Oximetry Medical Decision Making - Medical Decision Making Was pt. sent in by a medical professional or institution (ABBI Murry, TRIMMER CLIMBER, urgent care, hospital, or residential...) When possible be specific @ -No Did you speak to anyone other than the patient for history (EMS, parent, family, police, friend...)? What history was obtained from this source @ -No Did you review nursing and triage notes (agree or disagree)? Why? @ -I reviewed and agree with nursing and triage notes Were old charts reviewed (outside hosp., previous admission, EMS record, old EKG, old radiological studies, urgent care reports/EKG's, residential records)? Report findings @ -No old charts were reviewed Differential Diagnosis (chest pain, altered mental status, abdominal pain women, abdominal pain men, vaginal bleeding, weakness, fever, dyspnea, syncope, headache, dizziness, GI bleed, back pain, seizure, CVA, palpatations, mental health, musculoskeletal)? @ -MDM Differential Abdominal Pain Women: Appendicitis, Cholecystitis, diverticulosis, ischemic bowel, pancreatitis, hepatitis, UTI, gastroenteritis, AAA, incarcerated hernia, bowel obstruction, constipation, inflammatory bowel, hepatitis, peptic ulcer disease, splenic infarction, perforated viscus, vulvitis, ovarian torsion, PID, kidney stone, placenta abruption... This is not meant to be an all-inclusive list EKG interpreted by me (3pts min.). @ -As above X-rays interpreted by me (1pt min.). @ -None done CT interpreted by me (1pt min.). @ -None done U/S interpreted by me (1pt. min.). @ -None done What testing was considered but not performed or refused? (CT, X-rays, U/S, labs)? Why? @ -None What meds were considered but not given or refused? Why? @ -None Did you discuss the management of the patient with other professionals (professionals i.e. , PA, TRIMMER CLIMBER, lab, RT, psych nurse, social economist, specialist wound care, teacher, chief business officer, case therapist)? Give summary @ -No Was smoking cessation discussed for >3mins.? @ -No Was critical care preformed (if so, how long)? @ -No Were there social determinants of health that impacted care today? How? (Homelessness, low income, unemployed, alcoholism, drug addiction, transportation, low edu. Level, literacy, decrease access to med. care, [facility], rehab)? @ -No Was there de-escalation of care discussed even if they declined (Discuss DNR or withdrawal of care, Hospice)? DNR status @ -No What co-morbidities impacted this encounter? (DM, HTN, Smoking, COPD, CAD, Cancer, CVA, ARF, Chemo, Hep., AIDS, mental health diagnosis, sleep apnea, morbid obesity)? @ -None Was patient admitted / discharged? Hospital course, mention meds given and rout e, prescriptions, significant lab abnormalities, going to OR and other pertinent info. @ -22-year-old female presenting with chief complaint of abdominal pain, nausea, diarrhea, dysuria. Physical exam is conducted. Urine is positive for bacteria and nitrites. Negative hCG. Lab work shows no leukocytosis or anemia. Patient reports improvement after pain and nausea medication. Patient will be treated for UTI with Keflex. Follow-up with PCP. Report back to ER with any new or worsening symptoms. Discussed return parameters and answered all questions. Patient conveyed verbal understanding and agreed to the plan. I discussed this case in detail with my attending Dr. Gandhi Undiagnosed new problem with uncertain prognosis? @ -No Drug Therapy requiring intensive monitoring for toxicity (Heparin, Nitro, Insulin, Cardizem)? @ -No Were any procedures done? @ -No Diagnosis/symptom? @ -UTI Acute, or Chronic, or Acute on Chronic? @ -Acute Uncomplicated (without systemic symptoms) or Complicated (systemic symptoms)? @ -Uncomplicated Side effects of treatment? @ -No Exacerbation, Progression, or Severe Exacerbation? @ -No Poses a threat to life or bodily function? How? (Chest pain, [place], [place], pneumonia, PE, COPD, DKA, ARF, appy, cholecystitis, CVA, Diverticulitis, Homicidal, Suicidal, threat to staff... and all critical care pts) @ -No - Lab Data Result diagrams: 12/16/22 21:16 12/16/22 21:16 Lab Results 12/16/22 12/16/22 12/16/22 Range/Units 20:38 20:38 21:16 WBC 6.1 (3.8-10.6) k/uL RBC 4.46 (3.80-5.40) m/uL Hgb 12.2 (11.4-16.0) gm/dL Hct 37.5 (34.0-46.0) % MCV 84.3 (80.0-100.0) fL MCH 27.4 (25.0-35.0) pg MCHC 32.6 (31.0-37.0) g/dL RDW 14.7 (11.5-15.5) % Plt Count 205 (150-450) k/uL MPV 8.6 Neutrophils % 70 % Lymphocytes % 22 % Monocytes % 5 % Eosinophils % 2 % Basophils % 0 % Neutrophils # 4.3 (1.3-7.7) k/uL Lymphocytes # 1.3 (1.0-4.8) k/uL Monocytes # 0.3 (0-1.0) k/uL Eosinophils # 0.1 (0-0.7) k/uL Basophils # 0.0 (0-0.2) k/uL Sodium (137-145) mmol/L Potassium (3.5-5.1) mmol/L Chloride (98-107) mmol/L Carbon Dioxide (22-30) mmol/L Anion Gap mmol/L BUN (7-17) mg/dL Creatinine (0.52-1.04) mg/dL Est GFR (CKD-EPI)AfAm (>60 ml/min/1.73 sqM) Est GFR (CKD-EPI)NonAf (>60 ml/min/1.73 sqM) Glucose (74-99) mg/dL Calcium (8.4-10.2) mg/dL Total Bilirubin (0.2-1.3) mg/dL AST (14-36) U/L ALT (4-34) U/L Alkaline Phosphatase (38-126) U/L Total Protein (6.3-8.2) g/dL Albumin (3.5-5.0) g/dL Amylase (30-110) U/L Lipase (23-300) U/L Urine Color Colorless Urine Appearance Clear (Clear) Urine pH 6.5 (5.0-8.0) Ur Specific [place] 1.014 (1.001-1.035) Urine Protein Negative (Negative) Urine Glucose (UA) Negative (Negative) Urine Ketones Negative (Negative) Urine Blood Negative (Negative) Urine Nitrite Positive H (Negative) Urine Bilirubin Negative (Negative) Urine Urobilinogen <2.0 (<2.0) mg/dL Ur Leukocyte Esterase Negative (Negative) Ur Squamous Epith Cells 1 (0-4) /hpf Urine Bacteria Moderate H (None) /hpf Urine Mucus Rare H (None) /hpf Urine HCG, Qual Not Detected (Not Detectd) 12/16/22 Range/Units 21:16 WBC (3.8-10.6) k/uL RBC (3.80-5.40) m/uL Hgb (11.4-16.0) gm/dL Hct (34.0-46.0) % MCV (80.0-100.0) fL MCH (25.0-35.0) pg MCHC (31.0-37.0) g/dL RDW (11.5-15.5) % Plt Count (150-450) k/uL MPV Neutrophils % % Lymphocytes % % Monocytes % % Eosinophils % % Basophils % % Neutrophils # (1.3-7.7) k/uL Lymphocytes # (1.0-4.8) k/uL Monocytes # (0-1.0) k/uL Eosinophils # (0-0.7) k/uL Basophils # (0-0.2) k/uL Sodium 139 (137-145) mmol/L Potassium 4.0 (3.5-5.1) mmol/L Chloride 105 (98-107) mmol/L Carbon Dioxide 24 (22-30) mmol/L Anion Gap 10 mmol/L BUN 14 (7-17) mg/dL Creatinine 0.67 (0.52-1.04) mg/dL Est GFR (CKD-EPI)AfAm >90 (>60 ml/min/1.73 sqM) Est GFR (CKD-EPI)NonAf >90 (>60 ml/min/1.73 sqM) Glucose 100 H (74-99) mg/dL Calcium 9.2 (8.4-10.2) mg/dL Total Bilirubin 1.5 H (0.2-1.3) mg/dL AST 22 (14-36) U/L ALT 12 (4-34) U/L Alkaline Phosphatase 51 (38-126) U/L Total Protein 7.4 (6.3-8.2) g/dL Albumin 4.4 (3.5-5.0) g/dL Amylase 112 H (30-110) U/L Lipase 166 (23-300) U/L Urine Color Urine Appearance (Clear) Urine pH (5.0-8.0) Ur Specific [place] (1.001-1.035) Urine Protein (Negative) Urine Glucose (UA) (Negative) Urine Ketones (Negative) Urine Blood (Negative) Urine Nitrite (Negative) Urine Bilirubin (Negative) Urine Urobilinogen (<2.0) mg/dL Ur Leukocyte Esterase (Negative) Ur Squamous Epith Cells (0-4) /hpf Urine Bacteria (None) /hpf Urine Mucus (None) /hpf Urine HCG, Qual (Not Detectd) Disposition Clinical Impression: UTI (urinary tract infection) Disposition: HOME SELF-CARE Condition: Good Instructions (If sedation given, give patient instructions): Urinary Tract Infection in Women (ED), Acute Nausea and Vomiting (ED) Additional Instructions: Follow-up with PCP. Report back to ER with any new or worsening symptoms. Prescriptions: Cephalexin [Keflex] 500 mg PO Q12HR 7 Days #14 cap Ondansetron Odt [Zofran Odt] 4 mg PO Q8HR PRN #20 tab PRN Reason: Nausea Is patient prescribed a controlled substance at d/c from ED?: No Referrals: Herb Lewis [Primary Care Provider] - 1-2 days Time of Disposition: 22:38
== END 2022-12-16 22:45 | disposition home or self-care (01) ==
LOC: EC 19:28
DX: N39.0 Urinary tract infection, site not specified (principal); B96.20 Unspecified Escherichia coli [E. coli] as the cause of diseases classified elsewhere; Z86.59 Personal history of other mental and behavioral disorders; F17.290 Nicotine dependence, other tobacco product, uncomplicated; Z88.8 Allergy status to other drugs, medicaments and biological substances
CPT/HCPCS: 99284; 96374; 36415; 80053; 82150; 83690; 85025; 81001; 81025; 87086; 87077; 87186; 96375; J2405; J1885

== ENCOUNTER 2022-12-25 20:28 | Emergency (ER) | payer OTHER ==
[2022-12-25 20:48] VITALS: TEMP 98.2
[2022-12-25] MEDS ORDERED: SODIUM CHLORIDE 0.9% 500 ML 500 ML IV STA (21:39)
[2022-12-25] MEDS ORDERED: MECLIZINE 12.5 MG TAB PO STA (21:53)
--- NOTE | 2022-12-25 22:49 | ED ---
General Adult HPI - General Chief complaint: Dizziness Stated complaint: Dizziness,headahe Time Seen by Provider: 12/25/22 21:12 Source: patient Mode of arrival: ambulatory Limitations: no limitations - History of Present Illness Onset/Timin -: days(s) Location: head Quality: dull Consistency: intermittent Improves with: none Worsens with: none Associated Symptoms: headaches, nausea/vomiting, other (Dizziness) Treatments Prior to Arrival: none - Related Data Previous Rx's Medication Instructions Recorded Cephalexin [Keflex] 500 mg PO Q6HR 10 Days #40 cap 11/18/19 Ibuprofen [Motrin] 600 mg PO Q8HR PRN #30 tab 11/18/19 Phenazopyridine [Pyridium] 100 mg PO TID #9 tablet 11/18/19 Famotidine [Pepcid] 20 mg PO BID #28 tablet 04/02/22 hydrOXYzine HCL [Atarax] 50 mg PO Q8H PRN #15 tablet 04/02/22 Cephalexin [Keflex] 500 mg PO Q12HR 7 Days #14 cap 12/16/22 Ondansetron Odt [Zofran Odt] 4 mg PO Q8HR PRN #20 tab 12/16/22 Allergies Allergy/AdvReac Type Severity Reaction Status Date / Time metoclopramide [From Reglan] AdvReac Hallucinati Verified 12/16/22 20:06 ons Review of Systems ROS Statement: Those systems with pertinent positive or pertinent negative responses have been documented in the HPI. ROS Other: All systems not noted in ROS Statement are negative. Constitutional: Denies: fever, chills, weakness Eyes: Denies: vision change ENT: Denies: ear pain, hearing loss Respiratory: Denies: cough, dyspnea Cardiovascular: Denies: chest pain, palpitations, edema, syncope Gastrointestinal: Denies: abdominal pain, nausea, vomiting, diarrhea Genitourinary: Denies: dysuria, hematuria Musculoskeletal: Denies: back pain Skin: Denies: rash Neurological: Reports: headache, vertigo. Denies: weakness, numbness, confusion Past Medical History Past Medical History: GERD/Reflux History of Any Multi-Drug Resistant Organisms: ESBL, Other MDRO Date of last positivie culture/infection: 12/25/17 MDRO Source:: URNE ESBL Past Surgical History: Section Past Anesthesia/Blood Transfusion Reactions: No Reported Reaction Past Psychological History: Anxiety, Bipolar, Depression Smoking Status: Vaper Past Alcohol Use History: None Reported Past Drug Use History: None Reported General Exam Limitations: no limitations General appearance: alert, in no apparent distress Head exam: Present: atraumatic, normocephalic Eye exam: Present: normal appearance, PERRL, EOMI. Absent: scleral icterus, conjunctival injection ENT exam: Present: normal oropharynx Neck exam: Present: normal inspection, full ROM. Absent: meningismus Respiratory exam: Present: normal lung sounds bilaterally. Absent: respiratory distress, wheezes, rales, rhonchi, stridor Cardiovascular Exam: Present: regular rate, normal rhythm, normal heart sounds. Absent: systolic murmur, diastolic murmur, rubs, gallop GI/Abdominal exam: Present: soft. Absent: distended, tenderness, guarding, rebound, rigid, mass Extremities exam: Present: normal inspection, normal capillary refill. Absent: pedal edema, calf tenderness Back exam: Present: normal inspection. Absent: CVA tenderness (R), CVA tenderness (L) Neurological exam: Present: alert, oriented X3, CN II-XII intact. Absent: motor sensory deficit Skin exam: Present: warm, dry, intact, normal color. Absent: rash Course Vital Signs 12/25/22 12/25/22 12/26/22 20:30 22:48 00:00 Temperature 98.2 F Pulse Rate 90 67 60 Respiratory 16 17 18 Rate Blood Pressure 140/86 109/79 102/73 O2 Sat by Pulse 100 100 100 Oximetry EKG Findings - EKG Results: EKG: interpreted by ERMD, sinus rhythm, normal axis, normal QRS, normal ST/T, no acute changes EKG shows: bradycardia (Rate 57 bpm) Medical Decision Making - Medical Decision Making Was pt. sent in by a medical professional or institution (, PA, CONFERENCE SPECIALIST, urgent care, hospital, or intermediate...) When possible be specific @ -[No] Did you speak to anyone other than the patient for history (EMS, parent, family, police, friend...)? What history was obtained from this source @ -[No] Did you review nursing and triage notes (agree or disagree)? Why? @ -[I reviewed and agree with nursing and triage notes] Were old charts reviewed (outside hosp., previous admission, EMS record, old EKG, old radiological studies, urgent care reports/EKG's, intermediate records)? Report findings @ -[No old charts were reviewed] Differential Diagnosis (chest pain, altered mental status, abdominal pain women, abdominal pain men, vaginal bleeding, weakness, fever, dyspnea, syncope, headache, dizziness, GI bleed, back pain, seizure, CVA, palpatations, mental health, musculoskeletal)? @ -[Differential Dizziness: Benign paroxysmal positional Vertigo, Menieres disease, otitis media, acoustic neuroma, vertebrobasilar insufficiency, cerebellar stroke, encephalitis, hypovolemic, arrhythmia, coronary artery syndrome, anemia, this is not meant to be an all-inclusive list EKG interpreted by me (3pts min.). @ -[As above] X-rays interpreted by me (1pt min.). @ -[None done] CT interpreted by me (1pt min.). @ -[None done] U/S interpreted by me (1pt. min.). @ -[None done] What testing was considered but not performed or refused? (CT, X-rays, U/S, labs)? Why? @ -[None] What meds were considered but not given or refused? Why? @ -[None] Did you discuss the management of the patient with other professionals (pr ofessionals i.e. , PA, CONFERENCE SPECIALIST, lab, RT, psych nurse, social services coordinator, financial associate, teacher, precinct commanding officer, nurse case management)? Give summary @ -[No] Was smoking cessation discussed for >3mins.? @ -[No] Was critical care preformed (if so, how long)? @ -[No] Were there social determinants of health that impacted care today? How? (Homelessness, low income, unemployed, alcoholism, drug addiction, tra nsportation, low edu. Level, literacy, decrease access to med. care, [facility], rehab)? @ -[No] Was there de-escalation of care discussed even if they declined (Discuss DNR or withdrawal of care, Hospice)? DNR status @ -[No] What co-morbidities impacted this encounter? (DM, HTN, Smoking, COPD, CAD, Cancer, CVA, ARF, Chemo, Hep., AIDS, mental health diagnosis, sleep apnea, morbid obesity)? @ -[None] Was patient admitted / discharged? Hospital course, mention meds given and route, prescriptions, significant lab abnormalities, going to OR and other pertinent info. @ -Patient is a 22-year-old woman who was a constellation of symptoms most suggestive of viral syndrome. We discussed the appropriate further care and follow-up as well as return parameters. Undiagnosed new problem with uncertain prognosis? @ -[No] Drug Therapy requiring intensive monitoring for toxicity (Heparin, Nitro, Insulin, Cardizem)? @ -[No] Were any procedures done? @ -[No] Diagnosis/symptom? @ -Acute headache and dizziness Acute, or Chronic, or Acute on Chronic? @ -[Acute Uncomplicated (without systemic symptoms) or Complicated (systemic symptoms)? @ -[Uncomplicated Side effects of treatment? @ -[No] Exacerbation, Progression, or Severe Exacerbation? @ -[No] Poses a threat to life or bodily function? How? (Chest pain, [place], [place], pneumonia, PE, COPD, DKA, ARF, appy, cholecystitis, CVA, Diverticulitis, Homicidal, Suicidal, threat to staff... and all critical care pts) @ -[No] - Lab Data Result diagrams: 12/25/22 22:03 12/25/22 22:03 Lab Results 12/25/22 12/25/22 12/25/22 Range/Units 22:03 22:03 22:03 WBC 5.8 (3.8-10.6) k/uL RBC 4.27 (3.80-5.40) m/uL Hgb 12.1 (11.4-16.0) gm/dL Hct 36.1 (34.0-46.0) % MCV 84.6 (80.0-100.0) fL MCH 28.4 (25.0-35.0) pg MCHC 33.6 (31.0-37.0) g/dL RDW 14.4 (11.5-15.5) % Plt Count 207 (150-450) k/uL MPV 8.3 Neutrophils % 51 % Lymphocytes % 38 % Monocytes % 6 % Eosinophils % 2 % Basophils % 0 % Neutrophils # 3.0 (1.3-7.7) k/uL Lymphocytes # 2.2 (1.0-4.8) k/uL Monocytes # 0.4 (0-1.0) k/uL Eosinophils # 0.1 (0-0.7) k/uL Basophils # 0.0 (0-0.2) k/uL Sodium (137-145) mmol/L Potassium (3.5-5.1) mmol/L Chloride (98-107) mmol/L Carbon Dioxide (22-30) mmol/L Anion Gap mmol/L BUN (7-17) mg/dL Creatinine (0.52-1.04) mg/dL Est GFR (CKD-EPI)AfAm (>60 ml/min/1.73 sqM) Est GFR (CKD-EPI)NonAf (>60 ml/min/1.73 sqM) Glucose (74-99) mg/dL Calcium (8.4-10.2) mg/dL Total Bilirubin (0.2-1.3) mg/dL AST (14-36) U/L ALT (4-34) U/L Alkaline Phosphatase (38-126) U/L Total Protein (6.3-8.2) g/dL Albumin (3.5-5.0) g/dL Urine Color Yellow Urine Appearance Cloudy H (Clear) Urine pH 6.0 (5.0-8.0) Ur Specific [place] 1.025 (1.001-1.035) Urine Protein Negative (Negative) Urine Glucose (UA) Negative (Negative) Urine Ketones Negative (Negative) Urine Blood Negative (Negative) Urine Nitrite Negative (Negative) Urine Bilirubin Negative (Negative) Urine Urobilinogen 2.0 (<2.0) mg/dL Ur Leukocyte Esterase Negative (Negative) Urine RBC 1 (0-5) /hpf Urine WBC 2 (0-5) /hpf Ur Squamous Epith Cells 5 H (0-4) /hpf Amorphous Sediment Few H (None) /hpf Urine Bacteria Moderate H (None) /hpf Urine Mucus Many H (None) /hpf Urine HCG, Qual Not Detected (Not Detectd) Influenza Type A (PCR) (Not Detectd) Influenza Type B (PCR) (Not Detectd) RSV (PCR) (Not Detectd) SARS-CoV-2 (PCR) (Not Detectd) 12/25/22 12/25/22 Range/Units 22:03 22:03 WBC (3.8-10.6) k/uL RBC (3.80-5.40) m/uL Hgb (11.4-16.0) gm/dL Hct (34.0-46.0) % MCV (80.0-100.0) fL MCH (25.0-35.0) pg MCHC (31.0-37.0) g/dL RDW (11.5-15.5) % Plt Count (150-450) k/uL MPV Neutrophils % % Lymphocytes % % Monocytes % % Eosinophils % % Basophils % % Neutrophils # (1.3-7.7) k/uL Lymphocytes # (1.0-4.8) k/uL Monocytes # (0-1.0) k/uL Eosinophils # (0-0.7) k/uL Basophils # (0-0.2) k/uL Sodium 138 (137-145) mmol/L Potassium 3.8 (3.5-5.1) mmol/L Chloride 102 (98-107) mmol/L Carbon Dioxide 26 (22-30) mmol/L Anion Gap 10 mmol/L BUN 11 (7-17) mg/dL Creatinine 0.63 (0.52-1.04) mg/dL Est GFR (CKD-EPI)AfAm >90 (>60 ml/min/1.73 sqM) Est GFR (CKD-EPI)NonAf >90 (>60 ml/min/1.73 sqM) Glucose 89 (74-99) mg/dL Calcium 9.2 (8.4-10.2) mg/dL Total Bilirubin 1.4 H (0.2-1.3) mg/dL AST 19 (14-36) U/L ALT 12 (4-34) U/L Alkaline Phosphatase 62 (38-126) U/L Total Protein 7.0 (6.3-8.2) g/dL Albumin 4.1 (3.5-5.0) g/dL Urine Color Urine Appearance (Clear) Urine pH (5.0-8.0) Ur Specific [place] (1.001-1.035) Urine Protein (Negative) Urine Glucose (UA) (Negative) Urine Ketones (Negative) Urine Blood (Negative) Urine Nitrite (Negative) Urine Bilirubin (Negative) Urine Urobilinogen (<2.0) mg/dL Ur Leukocyte Esterase (Negative) Urine RBC (0-5) /hpf Urine WBC (0-5) /hpf Ur Squamous Epith Cells (0-4) /hpf Amorphous Sediment (None) /hpf Urine Bacteria (None) /hpf Urine Mucus (None) /hpf Urine HCG, Qual (Not Detectd) Influenza Type A (PCR) Not Detected (Not Detectd) Influenza Type B (PCR) Not Detected (Not Detectd) RSV (PCR) Not Detected (Not Detectd) SARS-CoV-2 (PCR) Not Detected (Not Detectd) Disposition Clinical Impression: Dizziness Disposition: HOME SELF-CARE Condition: Good Instructions (If sedation given, give patient instructions): Dizziness (ED) Is patient prescribed a controlled substance at d/c from ED?: No Referrals: Herb Lewis [Primary Care Provider] - 1-2 days
[2022-12-25 22:51] LABS: Eosinophils % (A) 2 %; HCT 36.1 % (34.0-46.0); HGB 12.1 gm/dL (11.4-16.0); Lymphocytes % (A) 38 %; MCH 28.4 pg (25.0-35.0); MCHC 33.6 g/dL (31.0-37.0); MCV 84.6 fL (80.0-100.0); Mean Platelet Volume 8.3; Monocytes % (A) 6 %; Neutrophils % (A) 51 %; Platelet Count 207 k/uL (150-450); RBC 4.27 m/uL (3.80-5.40); RDW 14.4 % (11.5-15.5); WBC 5.8 k/uL (3.8-10.6)
[2022-12-25 22:52] LABS: Basophils % (A) 0 %; Eosinophils # (A) 0.1 k/uL (0-0.7); Lymphocytes # (A) 2.2 k/uL (1.0-4.8); Monocytes # (A) 0.4 k/uL (0-1.0)
[2022-12-25 23:06] LABS: Amorphous Sediment,Urine Few /hpf; Appearance,Urine Cloudy (Clear); Bacteria,Urine Moderate /hpf; Bilirubin,Urine Negative (Negative); Blood,Urine Negative (Negative); Color,Urine Yellow; Glucose,Urine (UA) Negative (Negative); Ketones,Urine Negative (Negative); Leukocyte Esterase,Urine Negative (Negative); Mucus,Urine Many /hpf; Nitrite,Urine Negative (Negative); Protein,Urine Negative (Negative); RBC,Urine 1 /hpf (0-5); Specific Gravity,Urine 1.025 (1.001-1.035); Squamous Epithelial Cell,Urine 5 /hpf (0-4); WBC,Urine 2 /hpf (0-5)
[2022-12-25 23:17] LABS: ALT 12 U/L (4-34); AST 19 U/L (14-36); African American GFR (CKD) >90 (>60 ml/min/1.73 sqM); Albumin 4.1 g/dL (3.5-5.0); Alkaline Phosphatase 62 U/L (38-126); Anion Gap 10 mmol/L; Blood Urea Nitrogen 11 mg/dL (7-17); Calcium 9.2 mg/dL (8.4-10.2); Carbon Dioxide 26 mmol/L (22-30); Chloride 102 mmol/L (98-107); Glucose 89 mg/dL (74-99); Non-African American GFR(CKD) >90 (>60 ml/min/1.73 sqM); Potassium 3.8 mmol/L (3.5-5.1); Sodium 138 mmol/L (137-145); Total Bilirubin 1.4 mg/dL (0.2-1.3)
[2022-12-26 00:21] VITALS: BP 102/73; PULSE 60; RESP 18
== END 2022-12-26 00:09 | disposition home or self-care (01) ==
LOC: EC 20:28
DX: R42 Dizziness and giddiness (principal); F17.290 Nicotine dependence, other tobacco product, uncomplicated; Z88.8 Allergy status to other drugs, medicaments and biological substances; Z86.59 Personal history of other mental and behavioral disorders; Z20.822 Contact with and (suspected) exposure to COVID-19
CPT/HCPCS: 36415; 80053; 81001; 81025; 85025; 87636; 93005; 96360; 99284

== ENCOUNTER → 2023-05-11 | Outpatient (CLI) | payer OTHER ==
--- NOTE | 2023-05-11 12:40 | NM ---
EXAMINATION TYPE: NM gastric emptying static DATE OF EXAM: 05/11/2023 COMPARISON: NONE CLINICAL INDICATION: Female, 23 years old with history of R11.0 NAUSEA; Following administration of 2.0 mCi Tc 99m Sulfur Colloid with 2 ounces of eggs & 8 ounces of water, projection images of the abdomen were obtained 12 minutes post ingestion. Patient Emptying Values 1 Hour 34 % 2 Hours 73 % 3 Hours 91 % 4 Hours 99 % Gastroesophageal reflux: None IMPRESSION: 1. Normal gastric emptying. Gastric emptying normal percentage values: 30 minutes: <70% of retention (> 30% emptying) suggests abnormally fast emptying. 60 minutes: <90% retention (>10% emptying) is normal; less than 30% retention (>70% emptying) suggest s abnormally rapid empying. 90 minutes: <65% retention (> 35% emptying) is normal. 120 minutes: <60% retention (> 40% emptying) is normal. 180 minutes: <30% retention (> 70% emptying) is normal. Gastric emptying T-1/2: Solid: The normal range is 60-105 minutes Liquid only: Normal range is 10-45 minutes. Liquid only-children: At 60 minutes, normal range is 44-58 % . Liquid only-infants: At 60 minutes, normal range is 32-64 %. Additional references: Gastric Emptying Scintigraphy http://[email or web address]
== END | disposition home or self-care (01) ==
LOC: RADNMMAIN 07:13
PROVIDERS: ATTEND Internal Medicine Gastroenterology
DX: R11.0 Nausea (principal)
CPT/HCPCS: 78264; A9541

== ENCOUNTER → 2023-05-19 | Outpatient (CLI) | payer OTHER ==
--- NOTE | 2023-05-19 08:49 | US ---
EXAMINATION TYPE: US abdomen complete DATE OF EXAM: 05/19/2023 COMPARISON: 10/05/2022 CLINICAL INDICATION: Female, 23 years old with history of R17 UNSPECIFIED JAUNDICE; Elevated bilirubi n. Slight RUQ pain. Patient states she also has IBS TECHNIQUE: Multiple sonographic images of the abdomen are obtained. FINDINGS: EXAM MEASUREMENTS: Liver Length: 12.8 cm Gallbladder Wall: 0.2 cm CBD: 0.3 cm Spleen: 10.3 cm Right Kidney: 12.0 x 3.2 x 4.7 cm Left Kidney: 10.4 x 5.7 x 4.0 cm MAINTENANCE SHOP WELDER NOTES: Pancreas: wnl as best visualized today Liver: wnl Gallbladder: No stones seen. Wall WNL Evidence for sonographic Carter's sign: No CBD: wnl Spleen: wnl as best seen Right Kidney: No hydronephrosis or masses seen Left Kidney: No hydronephrosis or masses seen Upper IVC: wnl Abd Aorta: wnl IMPRESSION: No discrete abnormality seen.
== END | disposition home or self-care (01) ==
LOC: RADUSWWP 07:27
PROVIDERS: ATTEND Family Medicine
DX: R17 Unspecified jaundice (principal)
CPT/HCPCS: 76700

== ENCOUNTER 2023-05-21 21:34 | Emergency (ER) | payer OTHER ==
[2023-05-21 21:54] VITALS: RESP 18; TEMP 98.7
[2023-05-21 22:23] LABS: Amorphous Sediment,Urine Rare /hpf; Appearance,Urine Clear (Clear); Bacteria,Urine Many /hpf; Bilirubin,Urine Negative (Negative); Blood,Urine Negative (Negative); Color,Urine Colorless; Glucose,Urine (UA) Negative (Negative); Hyaline Casts,Urine 1 /lpf (0-2); Ketones,Urine Negative (Negative); Leukocyte Esterase,Urine Small (Negative); Nitrite,Urine Negative (Negative); PH, Urine 6.5 (5.0-8.0); Protein,Urine Negative (Negative); RBC,Urine 1 /hpf (0-5); Specific Gravity,Urine 1.005 (1.001-1.035); Squamous Epithelial Cell,Urine 6 /hpf (0-4); Urobilinogen,Urine <2.0 mg/dL (<2.0); WBC,Urine 6 /hpf (0-5)
[2023-05-21] MEDS: SODIUM CHLORIDE 0.9% 1,000 ML IV STA (22:44)
[2023-05-21] MEDS: ONDANSETRON 4 MG/2 ML VIAL IVP STA (22:44)
[2023-05-21] MEDS: DICYCLOMINE 10 MG/ML 2 ML AMP IM STA (22:44)
[2023-05-21 22:47] LABS: Basophils % (A) 1 %; Eosinophils # (A) 0.1 k/uL (0-0.7); Eosinophils % (A) 2 %; HGB 12.4 gm/dL (11.4-16.0); Lymphocytes # (A) 2.2 k/uL (1.0-4.8); Lymphocytes % (A) 37 %; MCH 27.6 pg (25.0-35.0); MCHC 31.7 g/dL (31.0-37.0); MCV 86.9 fL (80.0-100.0); Mean Platelet Volume 8.2; Monocytes # (A) 0.4 k/uL (0-1.0); Monocytes % (A) 7 %; Neutrophils # (A) 3.1 k/uL (1.3-7.7); Neutrophils % (A) 52 %; Platelet Count 203 k/uL (150-450); RBC 4.49 m/uL (3.80-5.40); RDW 13.5 % (11.5-15.5)
[2023-05-21] MEDS: KETOROLAC 15 MG/ML 1 ML VIAL IVP STA (22:48)
[2023-05-21 22:58] LABS: ALT 12 U/L (4-34); AST 20 U/L (14-36); African American GFR (CKD) >90 (>60 ml/min/1.73 sqM); Albumin 3.9 g/dL (3.5-5.0); Alkaline Phosphatase 63 U/L (38-126); Amylase 99 U/L (30-110); Anion Gap 9 mmol/L; Blood Urea Nitrogen 13 mg/dL (7-17); Carbon Dioxide 22 mmol/L (22-30); Chloride 107 mmol/L (98-107); Glucose 111 mg/dL (74-99); Lipase 195 U/L (23-300); Non-African American GFR(CKD) >90 (>60 ml/min/1.73 sqM); Potassium 3.8 mmol/L (3.5-5.1); Sodium 138 mmol/L (137-145); Total Bilirubin 1.5 mg/dL (0.2-1.3); Total Protein 6.8 g/dL (6.3-8.2)
--- NOTE | 2023-05-21 23:12 | ED ---
Abdominal Pain HPI - General Chief Complaint: Abdominal Pain Stated Complaint: Nausea, abd pain Time Seen by Provider: 05/21/23 21:43 Source: patient Mode of arrival: ambulatory Limitations: no limitations - History of Present Illness Initial Comments: 23-year-old female presenting with chief complaint of nausea and abdominal pain. Pain started today. Located equally across the abdomen. Patient states that she thinks this is due to her gluten intolerance. Patient has not vomited, states that she has a fear of vomiting. No diarrhea, hematochezia, melena, constipation. No fevers or chills. No chest pain or difficulty breathing. Surgical history includes - Related Data Previous Rx's Medication Instructions Recorded Cephalexin [Keflex] 500 mg PO Q6HR 10 Days #40 cap 11/18/19 Ibuprofen [Motrin] 600 mg PO Q8HR PRN #30 tab 11/18/19 Phenazopyridine [Pyridium] 100 mg PO TID #9 tablet 11/18/19 Famotidine [Pepcid] 20 mg PO BID #28 tablet 04/02/22 hydrOXYzine HCL [Atarax] 50 mg PO Q8H PRN #15 tablet 04/02/22 Cephalexin [Keflex] 500 mg PO Q12HR 7 Days #14 cap 12/16/22 Ondansetron Odt [Zofran Odt] 4 mg PO Q8HR PRN #20 tab 12/16/22 Dicyclomine [Bentyl] 20 mg PO QID PRN #20 tablet 05/21/23 Allergies Allergy/AdvReac Type Severity Reaction Status Date / Time ketorolac [From Toradol] Allergy Nausea & Verified 05/21/23 21:39 Vomiting metoclopramide [From Reglan] AdvReac Hallucinati Verified 05/21/23 21:39 ons Review of Systems ROS Statement: Those systems with pertinent positive or pertinent negative responses have been documented in the HPI. ROS Other: All systems not noted in ROS Statement are negative. Past Medical History Past Medical History: GERD/Reflux History of Any Multi-Drug Resistant Organisms: ESBL, Other MDRO Date of last positivie culture/infection: 12/25/17 MDRO Source:: URNE ESBL Past Surgical History: Section Past Anesthesia/Blood Transfusion Reactions: No Reported Reaction Past Psychological History: Anxiety, Bipolar, Depression Smoking Status: Vaper Past Alcohol Use History: None Reported Past Drug Use History: None Reported General Exam Limitations: no limitations General appearance: alert, in no apparent distress Head exam: Present: atraumatic, normocephalic Eye exam: Present: normal appearance, EOMI Neck exam: Present: normal inspection Respiratory exam: Present: normal lung sounds bilaterally. Absent: respiratory distress, wheezes, rales, rhonchi, stridor Cardiovascular Exam: Present: regular rate, normal rhythm, normal heart sounds. Absent: systolic murmur, diastolic murmur, rubs, gallop, clicks GI/Abdominal exam: Present: soft. Absent: distended, tenderness, guarding, rebound, rigid Neurological exam: Present: alert, oriented X3 Psychiatric exam: Present: normal affect, normal mood Skin exam: Present: warm, dry Course Vital Signs 05/21/23 05/21/23 21:37 23:34 Temperature 98.7 F Pulse Rate 86 63 Respiratory 18 18 Rate Blood Pressure 122/87 106/71 O2 Sat by Pulse 97 99 Oximetry Medical Decision Making - Medical Decision Making Was pt. sent in by a medical professional or institution (, PA, LABORER PIPELINE, urgent care, hospital, or correction...) When possible be specific @ -No Did you speak to anyone other than the patient for history (EMS, parent, family, police, friend...)? What history was obtained from this source @ -No Did you review nursing and triage notes (agree or disagree)? Why? @ -I reviewed and agree with nursing and triage notes Were old charts reviewed (outside hosp., previous admission, EMS record, old EKG, old radiological studies, urgent care reports/EKG's, correction records)? Report findings @ -No old charts were reviewed Differential Diagnosis (chest pain, altered mental status, abdominal pain women, abdominal pain men, vaginal bleeding, weakness, fever, dyspnea, syncope, headache, dizziness, GI bleed, back pain, seizure, CVA, palpatations, mental health, musculoskeletal)? @ -MDM Differential Abdominal Pain Women: Appendicitis, Cholecystitis, diverticulosis, ischemic bowel, pancreatitis, hepatitis, UTI, gastroenteritis, AAA, incarcerated hernia, bowel obstruction, constipation, inflammatory bowel, hepatitis, peptic ulcer disease, splenic infarction, perforated viscus, vulvitis, ovarian torsion, PID, kidney stone, placenta abruption... This is not meant to be an all-inclusive list EKG interpreted by me (3pts min.). @ -As above X-rays interpreted by me (1pt min.). @ -None done CT interpreted by me (1pt min.). @ -None done U/S interpreted by me (1pt. min.). @ -None done What testing was considered but not performed or refused? (CT, X-rays, U/S, labs)? Why? @ -None What meds were considered but not given or refused? Why? @ -None Did you discuss the management of the patient with other professionals (professionals i.e. Dr., PA, LABORER PIPELINE, lab, RT, psych nurse, social work professor, manager inventory, teacher, amphibious operations officer, case specialist)? Give summary @ -No Was smoking cessation discussed for >3mins.? @ -No Was critical care preformed (if so, how long)? @ -No Were there social determinants of health that impacted care today? How? (Homelessness, low income, unemployed, alcoholism, drug addiction, transportation, low edu. Level, literacy, decrease access to med. care, fpc, rehab)? @ -No Was there de-escalation of care discussed even if they declined (Discuss DNR or withdrawal of care, Hospice)? DNR status @ -No What co-morbidities impacted this encounter? (DM, HTN, Smoking, COPD, CAD, Cancer, CVA, ARF, Chemo, Hep., AIDS, mental health diagnosis, sleep apnea, morbid obesity)? @ -None Was patient admitted / discharged? Hospital course, mention meds given and route, prescriptions, significant lab abnormalities, going to OR and other pertinent info. @ -23-year-old female presenting with chief complaint of abdominal pain and nausea. History and physical exam are conducted. Lab work shows no leukocytosis or anemia. No evidence of pancreatitis. Bilirubin 1.5, consistent with previous values. Urine shows signs of contamination. hCG is negative. On reassessment patient reports improvement in her symptoms, she was given Bentyl, Zofran, and fluids. She is educated on today's findings. Discharged home. Follow-up with PCP. Report back to ER with any new or worsening symptoms. Discussed return parameters and answered all questions. Patient conveyed verbal understanding and agreed to the plan. I discussed this case in detail with my attending Dr. Martínez Undiagnosed new problem with uncertain prognosis? @ -No Drug Therapy requiring intensive monitoring for toxicity (Heparin, Nitro, Insulin, Cardizem)? @ -No Were any procedures done? @ -No Diagnosis/symptom? @ -Abdominal cramping Acute, or Chronic, or Acute on Chronic? @ -Acute Uncomplicated (without systemic symptoms) or Complicated (systemic symptoms)? @ -Uncomplicated Side effects of treatment? @ -No Exacerbation, Progression, or Severe Exacerbation? @ -No Poses a threat to life or bodily function? How? (Chest pain, [place], [place], pneumonia, PE, COPD, DKA, ARF, appy, cholecystitis, CVA, Diverticulitis, Homicidal, Suicidal, threat to staff... and all critical care pts) @ -Low likelihood - Lab Data Result diagrams: 05/21/23 22:30 05/21/23 22:30 Lab Results 05/21/23 05/21/23 05/21/23 Range/Units 22:00 22:00 22:30 WBC 6.0 (3.8-10.6) k/uL RBC 4.49 (3.80-5.40) m/uL Hgb 12.4 (11.4-16.0) gm/dL Hct 39.0 (34.0-46.0) % MCV 86.9 (80.0-100.0) fL MCH 27.6 (25.0-35.0) pg MCHC 31.7 (31.0-37.0) g/dL RDW 13.5 (11.5-15.5) % Plt Count 203 (150-450) k/uL MPV 8.2 Neutrophils % 52 % Lymphocytes % 37 % Monocytes % 7 % Eosinophils % 2 % Basophils % 1 % Neutrophils # 3.1 (1.3-7.7) k/uL Lymphocytes # 2.2 (1.0-4.8) k/uL Monocytes # 0.4 (0-1.0) k/uL Eosinophils # 0.1 (0-0.7) k/uL Basophils # 0.0 (0-0.2) k/uL Sodium (137-145) mmol/L Potassium (3.5-5.1) mmol/L Chloride (98-107) mmol/L Carbon Dioxide (22-30) mmol/L Anion Gap mmol/L BUN (7-17) mg/dL Creatinine (0.52-1.04) mg/dL Est GFR (CKD-EPI)AfAm (>60 ml/min/1.73 sqM) Est GFR (CKD-EPI)NonAf (>60 ml/min/1.73 sqM) Glucose (74-99) mg/dL Plasma Lactic Acid [place] (0.7-2.0) mmol/L Calcium (8.4-10.2) mg/dL Total Bilirubin (0.2-1.3) mg/dL AST (14-36) U/L ALT (4-34) U/L Alkaline Phosphatase (38-126) U/L Total Protein (6.3-8.2) g/dL Albumin (3.5-5.0) g/dL Amylase (30-110) U/L Lipase (23-300) U/L Urine Color Colorless Urine Appearance Clear (Clear) Urine pH 6.5 (5.0-8.0) Ur Specific [place] 1.005 (1.001-1.035) Urine Protein Negative (Negative) Urine Glucose (UA) Negative (Negative) Urine Ketones Negative (Negative) Urine Blood Negative (Negative) Urine Nitrite Negative (Negative) Urine Bilirubin Negative (Negative) Urine Urobilinogen <2.0 (<2.0) mg/dL Ur Leukocyte Esterase Small H (Negative) Urine RBC 1 (0-5) /hpf Urine WBC 6 H (0-5) /hpf Ur Squamous Epith Cells 6 H (0-4) /hpf Amorphous Sediment Rare H (None) /hpf Urine Bacteria Many H (None) /hpf Hyaline Casts 1 (0-2) /lpf Urine HCG, Qual Not Detected (Not Detectd) 05/21/23 05/21/23 Range/Units 22:30 22:30 WBC (3.8-10.6) k/uL RBC (3.80-5.40) m/uL Hgb (11.4-16.0) gm/dL Hct (34.0-46.0) % MCV (80.0-100.0) fL MCH (25.0-35.0) pg MCHC (31.0-37.0) g/dL RDW (11.5-15.5) % Plt Count (150-450) k/uL MPV Neutrophils % % Lymphocytes % % Monocytes % % Eosinophils % % Basophils % % Neutrophils # (1.3-7.7) k/uL Lymphocytes # (1.0-4.8) k/uL Monocytes # (0-1.0) k/uL Eosinophils # (0-0.7) k/uL Basophils # (0-0.2) k/uL Sodium 138 (137-145) mmol/L Potassium 3.8 (3.5-5.1) mmol/L Chloride 107 (98-107) mmol/L Carbon Dioxide 22 (22-30) mmol/L Anion Gap 9 mmol/L BUN 13 (7-17) mg/dL Creatinine 0.71 (0.52-1.04) mg/dL Est GFR (CKD-EPI)AfAm >90 (>60 ml/min/1.73 sqM) Est GFR (CKD-EPI)NonAf >90 (>60 ml/min/1.73 sqM) Glucose 111 H (74-99) mg/dL Plasma Lactic Acid [place] 0.8 (0.7-2.0) mmol/L Calcium 9.0 (8.4-10.2) mg/dL Total Bilirubin 1.5 H (0.2-1.3) mg/dL AST 20 (14-36) U/L ALT 12 (4-34) U/L Alkaline Phosphatase 63 (38-126) U/L Total Protein 6.8 (6.3-8.2) g/dL Albumin 3.9 (3.5-5.0) g/dL Amylase 99 (30-110) U/L Lipase 195 (23-300) U/L Urine Color Urine Appearance (Clear) Urine pH (5.0-8.0) Ur Specific [place] (1.001-1.035) Urine Protein (Negative) Urine Glucose (UA) (Negative) Urine Ketones (Negative) Urine Blood (Negative) Urine Nitrite (Negative) Urine Bilirubin (Negative) Urine Urobilinogen (<2.0) mg/dL Ur Leukocyte Esterase (Negative) Urine RBC (0-5) /hpf Urine WBC (0-5) /hpf Ur Squamous Epith Cells (0-4) /hpf Amorphous Sediment (None) /hpf Urine Bacteria (None) /hpf Hyaline Casts (0-2) /lpf Urine HCG, Qual (Not Detectd) Disposition Clinical Impression: Abdominal cramping Disposition: HOME SELF-CARE Condition: Good Instructions (If sedation given, give patient instructions): Gastroenteritis (ED), Acute Abdominal Pain (ED) Additional Instructions: Follow-up with PCP. Report back to ER with any new or worsening symptoms. Prescriptions: Dicyclomine [Bentyl] 20 mg PO QID PRN #20 tablet PRN Reason: Dyspepsia Is patient prescribed a controlled substance at d/c from ED?: No Referrals: Lamont Joshi DO [Primary Care Provider] - 1-2 days Time of Disposition: 23:12
[2023-05-21 23:51] VITALS: BP 106/71; PULSE 63
== END 2023-05-21 23:35 | disposition home or self-care (01) ==
LOC: EC 21:34
DX: R10.9 Unspecified abdominal pain (principal); F17.290 Nicotine dependence, other tobacco product, uncomplicated; Z88.8 Allergy status to other drugs, medicaments and biological substances
CPT/HCPCS: 36415; 80053; 82150; 83605; 83690; 85025; 81001; 81025; 99284; 96372; 96374; 96361; J0500; J2405

== ENCOUNTER 2023-06-15 10:31 | Emergency (ER) | payer OTHER ==
[2023-06-15 10:44] VITALS: RESP 18; TEMP 98
--- NOTE | 2023-06-15 11:39 | XR ---
EXAMINATION TYPE: XR ankle complete LT DATE OF EXAM: 06/15/2023 11:31 AM CLINICAL INDICATION:Female, 23 years old with history of pain; [facility] COMPARISON: None TECHNIQUE: XR ankle complete LT; ankle is imaged in frontal, lateral and oblique projections. FINDINGS: There is no evidence of acute osseous pathology. The joint spaces are well-preserved without evidenc e of subluxation or dislocation. Kager's fat pad is intact. Soft tissues are within normal limits. No radiopaque foreign bodies are identified. IMPRESSION: 1. No evidence of acute fracture. 2. Subcutaneous swelling around the ankle likely secondary to underlying soft tissue injury.
--- NOTE | 2023-06-15 11:44 | ED ---
Lower Extremity Injury HPI - General Chief Complaint: Extremity Injury, Lower Stated Complaint: L Ankle Injury Time Seen by Provider: 06/15/23 10:43 Source: patient, RN notes reviewed Mode of arrival: ambulatory Limitations: no limitations - History of Present Illness Initial Comments: 23-year-old female presents emergency department complaint of left ankle pain. Patient states she was coming down the steps states that she rolled her ankle. She states she has increasing pain with any weightbearing. Denies any paresthesias. Denies any other complaints. - Related Data Previous Rx's Medication Instructions Recorded Cephalexin [Keflex] 500 mg PO Q6HR 10 Days #40 cap 11/18/19 Ibuprofen [Motrin] 600 mg PO Q8HR PRN #30 tab 11/18/19 Phenazopyridine [Pyridium] 100 mg PO TID #9 tablet 11/18/19 Famotidine [Pepcid] 20 mg PO BID #28 tablet 04/02/22 hydrOXYzine HCL [Atarax] 50 mg PO Q8H PRN #15 tablet 04/02/22 Cephalexin [Keflex] 500 mg PO Q12HR 7 Days #14 cap 12/16/22 Ondansetron Odt [Zofran Odt] 4 mg PO Q8HR PRN #20 tab 12/16/22 Dicyclomine [Bentyl] 20 mg PO QID PRN #20 tablet 05/21/23 Allergies Allergy/AdvReac Type Severity Reaction Status Date / Time ketorolac [From Toradol] Allergy Nausea & Verified 06/15/23 10:41 Vomiting metoclopramide [From Reglan] AdvReac Hallucinati Verified 06/15/23 10:41 ons Review of Systems ROS Statement: Those systems with pertinent positive or pertinent negative responses have been documented in the HPI. ROS Other: All systems not noted in ROS Statement are negative. Past Medical History Past Medical History: GERD/Reflux History of Any Multi-Drug Resistant Organisms: ESBL, Other MDRO Date of last positivie culture/infection: 12/25/17 MDRO Source:: URNE ESBL Past Surgical History: Section Past Anesthesia/Blood Transfusion Reactions: No Reported Reaction Past Psychological History: Anxiety, Bipolar, Depression Smoking Status: Vaper Past Alcohol Use History: None Reported Past Drug Use History: None Reported General Exam Limitations: no limitations General appearance: alert, in no apparent distress Head exam: Present: atraumatic, normocephalic, normal inspection Respiratory exam: Present: normal lung sounds bilaterally. Absent: respiratory distress, wheezes, rales, rhonchi, stridor Cardiovascular Exam: Present: regular rate, normal rhythm, normal heart sounds. Absent: systolic murmur, diastolic murmur, rubs, gallop, clicks Extremities exam: Present: other (Left ankle tenderness throughout the malleolus laterally, neurovascular intact no foot tenderness) Course Vital Signs 06/15/23 06/15/23 10:39 11:57 Temperature 98.0 F Pulse Rate 95 74 Respiratory 18 18 Rate Blood Pressure 106/73 110/60 O2 Sat by Pulse 100 99 Oximetry Medical Decision Making - Medical Decision Making Was pt. sent in by a medical professional or institution (, ABBI, CREATIVE PERFUMER, urgent care, hospital, or halfway...) When possible be specific @ -No Did you speak to anyone other than the patient for history (EMS, parent, family, police, friend...)? What history was obtained from this source @ -No Did you review nursing and triage notes (agree or disagree)? Why? @ -I reviewed and agree with nursing and triage notes Were old charts reviewed (outside hosp., previous admission, EMS record, old EKG, old radiological studies, urgent care reports/EKG's, halfway records)? Report findings @ -No old charts were reviewed Differential Diagnosis (chest pain, altered mental status, abdominal pain women, abdominal pain men, vaginal bleeding, weakness, fever, dyspnea, syncope, headache, dizziness, GI bleed, back pain, seizure, CVA, palpatations, mental health, musculoskeletal)? @ -Ankle sprain, ankle fracture EKG interpreted by me (3pts min.). @ -None X-rays interpreted by me (1pt min.). @ -X-ray left ankle no acute fracture or dislocation CT interpreted by me (1pt min.). @ -None done U/S interpreted by me (1pt. min.). @ -None done What testing was considered but not performed or refused? (CT, X-rays, U/S, labs)? Why? @ -None What meds were considered but not given or refused? Why? @ -None Did you discuss the management of the patient with other professionals (professionals i.e. , PA, CREATIVE PERFUMER, lab, RT, psych nurse, delinquency prevention social worker, planning rn, teacher, head correction officer, machine adjuster leader case trim)? Give summary @ -No Was smoking cessation discussed for >3mins.? @ -No Was critical care preformed (if so, how long)? @ -No Were there social determinants of health that impacted care today? How? (Homelessness, low income, unemployed, alcoholism, drug addiction, transportation, low edu. Level, literacy, decrease access to med. care, residential, rehab)? @ -No Was there de-escalation of care discussed even if they declined (Discuss DNR or withdrawal of care, Hospice)? DNR status @ -No What co-morbidities impacted this encounter? (DM, HTN, Smoking, COPD, CAD, Cancer, CVA, ARF, Chemo, Hep., AIDS, mental health diagnosis, sleep apnea, morbid obesity)? @ -None Was patient admitted / discharged? Hospital course, mention meds given and route, prescriptions, significant lab abnormalities, going to OR and other pertinent info. @ -Discharge patient has negative x-ray, patient has left ankle sprain placed in a stirrup Aircast return for as discussed. Undiagnosed new problem with uncertain prognosis? @ -No Drug Therapy requiring intensive monitoring for toxicity (Heparin, Nitro, Insulin, Cardizem)? @ -No Were any procedures done? @ -No Diagnosis/symptom? @ -[Ankle sprain Acute, or Chronic, or Acute on Chronic? @ -Acute Uncomplicated (without systemic symptoms) or Complicated (systemic symptoms)? @ -Uncomplicated Side effects of treatment? @ -No Exacerbation, Progression, or Severe Exacerbation? @ -No Poses a threat to life or bodily function? How? (Chest pain, [place], [place], pneumonia, PE, COPD, DKA, ARF, appy, cholecystitis, CVA, Diverticulitis, Homicidal, Suicidal, threat to staff... and all critical care pts) @ -No Disposition Clinical Impression: Left ankle sprain Disposition: HOME SELF-CARE Condition: Stable Instructions (If sedation given, give patient instructions): Ankle Sprain (ED) Additional Instructions: Please return to the Emergency Department if symptoms worsen or any other concerns. Is patient prescribed a controlled substance at d/c from ED?: No Referrals: Lamont Joshi DO [Primary Care Provider] - 1-2 days Time of Disposition: 11:44
[2023-06-15 12:29] VITALS: BP 110/60; PULSE 74
== END 2023-06-15 11:59 | disposition home or self-care (01) ==
LOC: EC 10:31
DX: S93.402A Sprain of unspecified ligament of left ankle, initial encounter (principal); F17.290 Nicotine dependence, other tobacco product, uncomplicated; Z88.6 Allergy status to analgesic agent; Z88.8 Allergy status to other drugs, medicaments and biological substances; X50.0XXA Overexertion from strenuous movement or load, initial encounter
CPT/HCPCS: 99283

== ENCOUNTER 2024-05-27 05:47 | Emergency (ER) | payer OTHER ==
[2024-05-27 06:05] VITALS: TEMP 98.7
[2024-05-27] MEDS: ONDANSETRON 4 MG/2 ML VIAL IVP STA (06:13)
[2024-05-27] MEDS: SODIUM CHLORIDE 0.9% 1,000 ML IV ONE (06:13)
--- NOTE | 2024-05-27 06:13 | ED ---
URI HPI - General Chief Complaint: Upper Respiratory Infection Stated Complaint: JULIO Time Seen by Provider: 05/27/24 06:07 Source: patient, RN notes reviewed Mode of arrival: ambulatory Limitations: no limitations - History of Present Illness Initial Comments: 24-year-old female with no significant past medical history presenting to the ER for evaluation of URI symptoms. Patient states her son tested positive for influenza A on 05-19-2024. She states the following Tuesday she started to feel unwell with bodyaches and feeling unwell. She spiked a fever on Tuesday and started to experience cough, sore throat with continued fevers on which prompted her to be seen by urgent care on Tuesday. Patient was diagnosed with a sinus infection and bronchitis and started on prednisone and amoxicillin. Patient has also taken [id number] Tylenol she states she has been unable to take these medications as she has to "crush her medications and take with applesauce". She states she also is feeling nauseous and feels she is unable to keep anything down. She denies any difficulty breathing, wheezing, chest pain, abdominal pain, constipation/diarrhea, urinary complaints or peripheral edema. - Related Data Previous Rx's Medication Instructions Recorded Cephalexin [Keflex] 500 mg PO Q6HR 10 Days #40 cap 11/18/19 Ibuprofen [Motrin] 600 mg PO Q8HR PRN #30 tab 11/18/19 Phenazopyridine [Pyridium] 100 mg PO TID #9 tablet 11/18/19 Famotidine [Pepcid] 20 mg PO BID #28 tablet 04/02/22 hydrOXYzine HCL [Atarax] 50 mg PO Q8H PRN #15 tablet 04/02/22 Cephalexin [Keflex] 500 mg PO Q12HR 7 Days #14 cap 12/16/22 Ondansetron Odt [Zofran Odt] 4 mg PO Q8HR PRN #20 tab 12/16/22 Dicyclomine [Bentyl] 20 mg PO QID PRN #20 tablet 05/21/23 Ondansetron Odt [Zofran Odt] 4 mg PO Q8HR PRN #10 tab 05/27/24 Allergies Allergy/AdvReac Type Severity Reaction Status Date / Time ketorolac [From Toradol] Allergy Nausea & Verified 05/27/24 05:50 Vomiting metoclopramide [From Reglan] AdvReac Hallucinati Verified 05/27/24 05:50 ons Review of Systems ROS Statement: Those systems with pertinent positive or pertinent negative responses have been documented in the HPI. ROS Other: All systems not noted in ROS Statement are negative. Past Medical History Past Medical History: GERD/Reflux History of Any Multi-Drug Resistant Organisms: ESBL, Other MDRO Date of last positivie culture/infection: 12/25/17 MDRO Source:: URNE ESBL Past Surgical History: Section Past Anesthesia/Blood Transfusion Reactions: No Reported Reaction Past Psychological History: Anxiety, Bipolar, Depression Smoking Status: Vaper Past Alcohol Use History: None Reported Past Drug Use History: None Reported General Exam Limitations: no limitations General appearance: alert, in no apparent distress ENT exam: Present: normal exam, mucous membranes moist (Erythema to oropharynx. No tonsillar exudates or) Neck exam: Present: normal inspection. Absent: tenderness, meningismus, lymphadenopathy Respiratory exam: Present: normal lung sounds bilaterally. Absent: respiratory distress, wheezes, rales, rhonchi, stridor Cardiovascular Exam: Present: regular rate, normal rhythm, normal heart sounds. Absent: systolic murmur, diastolic murmur, rubs, gallop, clicks GI/Abdominal exam: Present: soft, normal bowel sounds. Absent: distended, tenderness, guarding, rebound, rigid Neurological exam: Present: alert, oriented X3, CN II-XII intact Skin exam: Present: warm, dry, intact, normal color. Absent: rash Course Vital Signs 05/27/24 05/27/24 05:50 05:58 Temperature 98.9 F 98.7 F Pulse Rate 110 H 90 Respiratory 18 22 Rate Blood Pressure 118/78 121/88 O2 Sat by Pulse 100 99 Oximetry Medical Decision Making - Medical Decision Making Was pt. sent in by a medical professional or institution (, PA, INSIGHT LEADER, urgent care, hospital, or shelter...) When possible be specific @ -No Did you speak to anyone other than the patient for history (EMS, parent, family, police, friend...)? What history was obtained from this source @ -No Did you review nursing and triage notes (agree or disagree)? Why? @ -I reviewed and agree with nursing and triage notes Were old charts reviewed (outside hosp., previous admission, EMS record, old EKG, old radiological studies, urgent care reports/EKG's, shelter records)? Report findings @ -No old charts were reviewed Differential Diagnosis (chest pain, altered mental status, abdominal pain women, abdominal pain men, vaginal bleeding, weakness, fever, dyspnea, syncope, headache, dizziness, GI bleed, back pain, seizure, CVA, palpatations, mental health, musculoskeletal)? @ -COVID, RSV, influenza, viral sinusitis, pneumonia, strep pharyngitis, this list is not meant to be all-inclusive EKG interpreted by me (3pts min.). @ -None done X-rays interpreted by me (1pt min.). @ -CXR interpreted me negative for focal consolidations. Small posterior pleural effusion CT interpreted by me (1pt min.). @ -None done U/S interpreted by me (1pt. min.). @ -None done What testing was considered but not performed or refused? (CT, X-rays, U/S, labs)? Why? @ -None What meds were considered but not given or refused? Why? @ -Patient refused tylenol Did you discuss the management of the patient with other professionals (professionals i.e. , PA, INSIGHT LEADER, lab, RT, psych nurse, social worker palliative care, retail banking manager, teacher, corporate officer, mental health case manager)? Give summary @ -No Was smoking cessation discussed for >3mins.? @ -No Was critical care preformed (if so, how long)? @ -No Were there social determinants of health that impacted care today? How? (Homelessness, low income, unemployed, alcoholism, drug addiction, transportation, low edu. Level, literacy, decrease access to med. care, prison, rehab)? @ -No Was there de-escalation of care discussed even if they declined (Discuss DNR or withdrawal of care, Hospice)? DNR status @ -No What co-morbidities impacted this encounter? (DM, HTN, Smoking, COPD, CAD, Cancer, CVA, ARF, Chemo, Hep., AIDS, mental health diagnosis, sleep apnea, morbid obesity)? @ -None Was patient admitted / discharged? Hospital course, mention meds given and route, prescriptions, significant lab abnormalities, going to OR and other pertinent info. @ -Discharge. 24-year-old female presented the ER for evaluation of URI symptoms. Vitals within acceptable limits. Patient in no signs of acute distress. Laboratory studies obtained unimpressive. Influenza B positive. CXR showing a small pleural effusions. No focal consolidations. Patient given IV fluids and Zofran for symptom control in the ER. Patient refused Tylenol. Patient will be discharged in stable condition with a Zofran prescription and instructed to follow-up closely with PCP. Conservative treatment options discussed. Return parameters discussed. Patient verbally expressed understanding and agreement with care plan. Case discussed with ED attending, Dr. Mccarthy. Undiagnosed new problem with uncertain prognosis? @ -No Drug Therapy requiring intensive monitoring for toxicity (Heparin, Nitro, Insulin, Cardizem)? @ -No Were any procedures done? @ -No Diagnosis/symptom? @ -Influenza B/acute viral sinusitis Acute, or Chronic, or Acute on Chronic? @ -Acute Uncomplicated (without systemic symptoms) or Complicated (systemic symptoms)? @ -Uncomplicated Side effects of treatment? @ -No Exacerbation, Progression, or Severe Exacerbation? @ -No Poses a threat to life or bodily function? How? (Chest pain, [place], [place], pneumonia, PE, COPD, DKA, ARF, appy, cholecystitis, CVA, Diverticulitis, Homicidal, Suicidal, threat to staff... and all critical care pts) @ -No - Lab Data Result diagrams: 05/27/24 06:18 05/27/24 06:18 Lab Results 05/27/24 05/27/24 05/27/24 Range/Units 06:18 06:18 06:18 WBC 3.92 L (4.50-10.00) 10*3/uL RBC 4.72 (4.10-5.20) 10*6/uL Hgb 12.8 (12.0-15.0) g/dL Hct 38.8 (37.2-46.3) % MCV 82.2 (80.0-97.0) fL MCH 27.1 (27.0-32.0) pg MCHC 33.0 (32.0-37.0) g/dL Plt Count 145 (140-440) 10*3/uL MPV 10.9 (9.5-12.2) fL Immature Gran % (Auto) 0.3 % Neutrophils % 64.2 % Lymphocytes % 28.1 % Monocytes % 6.4 % Eosinophils % 0.5 % Basophils % 0.5 % Immature Gran # 0.01 (0.00-0.04) 10*3/uL Neutrophils # 2.52 (1.80-7.70) 10*3/uL Lymphocytes # 1.10 (0.90-5.00) 10*3/uL Monocytes # 0.25 (0.20-1.00) 10*3/uL Eosinophils # 0.02 L (0.04-0.35) 10*3/uL Basophils # 0.02 (0.00-0.10) 10*3/uL Sodium 137 (137-145) mmol/L Potassium 3.4 L (3.5-5.1) mmol/L Chloride 100 (98-107) mmol/L Carbon Dioxide 26 (22-30) mmol/L Anion Gap 11 mmol/L BUN 8 (7-17) mg/dL Creatinine 0.65 (0.52-1.04) mg/dL Est GFR (CKD-EPI)AfAm >90 (>60 ml/min/1.73 sqM) Est GFR (CKD-EPI)NonAf >90 (>60 ml/min/1.73 sqM) Glucose 98 (74-99) mg/dL Calcium 9.0 (8.4-10.2) mg/dL Total Bilirubin 0.9 (0.2-1.3) mg/dL AST 23 (14-36) U/L ALT 11 (4-34) U/L Alkaline Phosphatase 87 (38-126) U/L Total Protein 7.4 (6.3-8.2) g/dL Albumin 4.2 (3.5-5.0) g/dL Influenza Type A (PCR) Not Detected (Not Detectd) Influenza Type B (PCR) Detected A (Not Detectd) RSV (PCR) Not Detected (Not Detectd) SARS-CoV-2 (PCR) Not Detected (Not Detectd) - Radiology Data Radiology results: report reviewed, image reviewed Disposition Clinical Impression: Influenza B, Acute viral sinusitis Disposition: HOME SELF-CARE Condition: Stable Additional Instructions: You may take [id number] Tylenol for symptom control. Take Zofran as prescribed for nausea. Follow-up closely with PCP. Return to the ER for any new or worsening concerns Prescriptions: Ondansetron Odt [Zofran Odt] 4 mg PO Q8HR PRN #10 tab PRN Reason: Nausea Is patient prescribed a controlled substance at d/c from ED?: No Referrals: Lamont Joshi DO [Primary Care Provider] - 1-2 days Time of Disposition: 07:32
[2024-05-27] MEDS: ACETAMINOPHEN TAB 325 MG TAB PO STA (06:14)
[2024-05-27 06:26] LABS: Basophils # (A) 0.02 10*3/uL (0.00-0.10); Basophils % (A) 0.5 %; Eosinophils # (A) 0.02 10*3/uL (0.04-0.35); Eosinophils % (A) 0.5 %; HCT 38.8 % (37.2-46.3); HGB 12.8 g/dL (12.0-15.0); Lymphocytes % (A) 28.1 %; MCH 27.1 pg (27.0-32.0); MCV 82.2 fL (80.0-97.0); Mean Platelet Volume 10.9 fL (9.5-12.2); Monocytes # (A) 0.25 10*3/uL (0.20-1.00); Monocytes % (A) 6.4 %; Neutrophils # (A) 2.52 10*3/uL (1.80-7.70); Neutrophils % (A) 64.2 %; Platelet Count 145 10*3/uL (140-440); RBC 4.72 10*6/uL (4.10-5.20); WBC 3.92 10*3/uL (4.50-10.00)
[2024-05-27 06:37] LABS: ALT 11 U/L (4-34); AST 23 U/L (14-36); African American GFR (CKD) >90 (>60 ml/min/1.73 sqM); Albumin 4.2 g/dL (3.5-5.0); Alkaline Phosphatase 87 U/L (38-126); Anion Gap 11 mmol/L; Blood Urea Nitrogen 8 mg/dL (7-17); Carbon Dioxide 26 mmol/L (22-30); Chloride 100 mmol/L (98-107); Glucose 98 mg/dL (74-99); Non-African American GFR(CKD) >90 (>60 ml/min/1.73 sqM); Potassium 3.4 mmol/L (3.5-5.1); Sodium 137 mmol/L (137-145); Total Bilirubin 0.9 mg/dL (0.2-1.3); Total Protein 7.4 g/dL (6.3-8.2)
[2024-05-27 07:02] LABS: Influenza A Not Detected (Not Detectd); Influenza B Detected (Not Detectd); RSV Not Detected (Not Detectd)
--- NOTE | 2024-05-27 07:08 | XR ---
EXAMINATION TYPE: XR chest 2V DATE OF EXAM: 05/27/2024 6:51 AM COMPARISON: 09/06/2019 CLINICAL INDICATION: Female, 24 years old with history of cough, TECHNIQUE: XR chest 2V view(s) obtained. FINDINGS: The heart size is normal. The pulmonary vasculature is normal. There is a small posterior pleural effusion.. IMPRESSION: 1. Small posterior pleural effusion [facility], , 05/27/2024 7:05 AM
[2024-05-27 07:55] VITALS: BP 134/84; PULSE 92; RESP 20
== END 2024-05-27 07:55 | disposition home or self-care (01) ==
LOC: EC 05:47
DX: J10.1 Influenza due to other identified influenza virus with other respiratory manifestations (principal); J01.90 Acute sinusitis, unspecified; B97.89 Other viral agents as the cause of diseases classified elsewhere; F17.290 Nicotine dependence, other tobacco product, uncomplicated; Z88.6 Allergy status to analgesic agent; Z88.8 Allergy status to other drugs, medicaments and biological substances
CPT/HCPCS: 36415; 80053; 85025; 87636; 71046; 99285; 96374; 96361; J2405